=== PATIENT | male | born 1950 | race Caucasian/White ===

== ENCOUNTER → 2018-05-31 | Outpatient (CLI) | payer OTHER ==
[~2018-05-31] MED LIST: ACETAMINOPHEN650 M5 PO; ACIPHEX 20 MG T20 MG PO; ALDACTONE25 MG PO; AMLODIPINE BESYL5 MG PO; AMOXICILLIN 50500 M1 PO; ASTELIN30 ML; AUGMENTIN 875-1 EACH PO; BENICAR HCT 401 EAC1 PO; BENICAR40 MG PO; BIOTIN800 MCG PO; BYETTA PEN 11 PENIN1 SUBQ; CARDIZEM CD240 MG PO; CARVEDILOL12.5 MG PO; CENTRUM SILVER1 EAC2 PO; CLARITIN-D 12 H1 TA2 PO; CLARITIN5 MG; CLOBETASOL OINTMENT; CLONAZEPAM; CLONAZEPAM 1 MG1 M1 PO; COREG25 MG PO; COUMADIN 10MG T10 M1 PO; COUMADIN 2.5MG2.5 M1 PO; COUMADIN PO; COUMADIN6 MG PO; CYMBALTA30 MG PO; CYMBALTA60 MG PO; CYTOMEL 5MCG TA5 MCG PO; DIGOXIN250 MCG PO; ELA-MAX30 GM TOP; FAMOTIDINE PO; FARXIGA10 MG PO; FEMARA2.5 MG PO; FISH OIL 1,2001 EAC3 PO; FISHOIL PO; FORADIL12 MCG; FORADIL12 MCG INH; GABAPENTIN 100100 MG PO; HYDROCODON-ACE1 EAC7 PO; HYDROCODONE-CH473 M1 PO; INVOKANA100 MG PO; IRON325 PO; K-DUR10 MEQ PO; KETOCONAZOLE 2%; LANOXIN 0.250.25 M1 PO; LANTUS SOL100 UNIT/1 SUBQ; LANTUSSOLASTAR; LANTUSSOLASTAR SUBQ; LASIX 20 MG TAB20 MG PO; LEVAQUIN 500 M500 M4 PO; LEVOTHYROXIN0.025 MG PO; LIDOCAINE 3% CREAM; LIDODERM 5%1 PATC1 TRANSDERM; LIDODERM 5%1 PATCH TOP; LIDODERM 5%1 PATCH TRANSDERM; LISINOPRIL2.5 MG PO; LISINOPRIL5 MG PO; MAGNES PO; MAGNESIUM250 M1 PO; MEDROL4 MG PO; MELADOX3 MG PO; MELATONIN1 MG PO; METFORMIN ER PO; METFORMIN PO; MIDODRINE HCL 55 M1 PO; NASAL SPRAY30 ML NASAL; NASONEX17 GM; NEURONTIN600 MG PO; NORCO 5-325 TA1 EACH PO; NORVASC 5 MG TAB5 MG PO; NOVOLOG FLEX PEN SC; NOVOLOG100 UNIT/1 SQ; NOVOLOG100 UNIT/1 SUBQ; PACERONE 200 M200 M1 PO; PRAVACHOL40 MG PO; PREVACID PO; PREVACID15 MG PO; PULMICORT FLE180 MCG INH; PULMICORT0.25 MG/2; RELORA PO; SUPER B-COMPLE1 EAC2 PO; VITAMIN B-1100 M1 PO; VITAMIN B12-FO1 EAC1 PO; VITAMIN B6 PO; VITAMIN D-32000 UNIT PO; WELLBUTRIN SR150 MG PO; XARELTO15 MG PO; XOPENEX HF1 UDINHALE; XOPENEX0.31 MG/3 INH; ZESTORETIC; ZINC 15 MG LOZE15 MG PO; [UNRECOGNIZED DRUG - OTHER]; [UNRECOGNIZED DRUG - REMARK]
[2018-05-31 09:23] LABS: CALCIUM 8.5 mg/dL (8.5-10.1); CREATININE 0.9 mg/dL (0.6-1.3); POTASSIUM 4.4 mmol/L (3.5-5.1)
[2018-05-31 09:28] LABS: TOTAL BILIRUBIN 1.1 mg/dL (<0.1-1.0); TOTAL PROTEIN 6.8 g/dL (6.4-8.2)
[2018-05-31 09:31] LABS: ABSOLUTE BASOPHILS 0.1 thou/uL (0.0-0.2); ABSOLUTE EOSINOPHILS 0.3 thou/uL (0.0-0.7); ABSOLUTE LYMPHOCYTES 1.6 thou/uL (0.8-5.3); ABSOLUTE MONOCYTES 0.8 thou/uL (0.0-1.2); ABSOLUTE NEUTROPHILS 4.6 thou/uL (1.6-8.1); BASOPHILS 1.4 %; EOSINOPHILS 4.3 %; HEMATOCRIT 41.3 % (42.0-52.0); HEMOGLOBIN 13.4 gm/dL (14.0-18.0); LYMPHOCYTES 21.5 %; MCH 26.6 pg (26.0-34.0); MCHC 32.3 g/dL (28.0-37.0); MCV 82.4 fL (80.0-100.0); MONOCYTES 10.4 %; MPV 8.9 fl. (7.2-11.1); NUCLEATED RBCS 0 /100WBC; PLATELET COUNT* 201 thou/uL (150-400); POLYS 62.4 %; RBC 5.02 mil/uL (4.50-6.00); RDW-CV 14.1 % (10.5-14.5); WBC 7.4 thou/uL (4.0-11.0)
[2018-05-31 10:31] LABS: ESR (SEDRATE) 13 mm/hr (0-20)
[2018-06-01 03:07] LABS: GLYCOHEMOGLOBIN (HGB A1C) 10.2 % (4.8-5.6)
== END ==
LOC: M.WC 02:04
PROVIDERS: Family Medicine
DX: I87.333 Chronic venous hypertension (idiopathic) with ulcer and inflammation of bilateral lower extremity (principal); E11.622 Type 2 diabetes mellitus with other skin ulcer; L97.822 Non-pressure chronic ulcer of other part of left lower leg with fat layer exposed; L97.812 Non-pressure chronic ulcer of other part of right lower leg with fat layer exposed; I89.0 Lymphedema, not elsewhere classified; E11.40 Type 2 diabetes mellitus with diabetic neuropathy, unspecified; M06.9 Rheumatoid arthritis, unspecified; K21.9 Gastro-esophageal reflux disease without esophagitis; I50.22 Chronic systolic (congestive) heart failure; I48.2 Chronic atrial fibrillation; F33.1 Major depressive disorder, recurrent, moderate; E03.8 Other specified hypothyroidism; Z85.3 Personal history of malignant neoplasm of breast; Z68.37 Body mass index [BMI] 37.0-37.9, adult; Z79.4 Long term (current) use of insulin

== ENCOUNTER → 2018-06-04 | Outpatient (CLI) | payer OTHER | LOC: M.WC 01:05 | DX: I87.333 Chronic venous hypertension (idiopathic) with ulcer and inflammation of bilateral lower extremity (principal); E11.622 Type 2 diabetes mellitus with other skin ulcer; L97.821 Non-pressure chronic ulcer of other part of left lower leg limited to breakdown of skin; L97.811 Non-pressure chronic ulcer of other part of right lower leg limited to breakdown of skin; I89.0 Lymphedema, not elsewhere classified; I25.10 Atherosclerotic heart disease of native coronary artery without angina pectoris; I50.22 Chronic systolic (congestive) heart failure; I48.2 Chronic atrial fibrillation; K21.9 Gastro-esophageal reflux disease without esophagitis; F33.1 Major depressive disorder, recurrent, moderate; E03.8 Other specified hypothyroidism; E11.40 Type 2 diabetes mellitus with diabetic neuropathy, unspecified; M06.9 Rheumatoid arthritis, unspecified; Z85.3 Personal history of malignant neoplasm of breast; Z68.37 Body mass index [BMI] 37.0-37.9, adult ==

== ENCOUNTER → 2018-06-07 | Outpatient (CLI) | payer OTHER | LOC: M.WC 03:45 | DX: E11.622 Type 2 diabetes mellitus with other skin ulcer (principal); L97.821 Non-pressure chronic ulcer of other part of left lower leg limited to breakdown of skin; L97.811 Non-pressure chronic ulcer of other part of right lower leg limited to breakdown of skin; L97.321 Non-pressure chronic ulcer of left ankle limited to breakdown of skin; L97.311 Non-pressure chronic ulcer of right ankle limited to breakdown of skin; E11.40 Type 2 diabetes mellitus with diabetic neuropathy, unspecified; I89.0 Lymphedema, not elsewhere classified; I25.10 Atherosclerotic heart disease of native coronary artery without angina pectoris; I50.22 Chronic systolic (congestive) heart failure; I48.2 Chronic atrial fibrillation; K21.9 Gastro-esophageal reflux disease without esophagitis; E03.8 Other specified hypothyroidism; M06.9 Rheumatoid arthritis, unspecified; F33.1 Major depressive disorder, recurrent, moderate; Z85.3 Personal history of malignant neoplasm of breast; Z68.37 Body mass index [BMI] 37.0-37.9, adult; Z95.0 Presence of cardiac pacemaker ==

== ENCOUNTER → 2018-06-11 | Outpatient (CLI) | payer OTHER ==
--- NOTE | 2018-06-11 12:54 | 2DMMODE ---
[place] [address] 2 D/M-MODE ECHOCARDIOGRAM Name: ED SEAY Room: [facility]#: [id number] Admission: 06/11/18 Attend Phys: Rober Christine MD Discharge: Date of : 54 Date of Service: 06/11/18 1254 Report #: [id number] THIS REPORT FOR: //name// APPROVED REPORT Study performed: 06/11/2018 10:02:15 EXAM: Comprehensive 2D, Doppler, and color-flow Echocardiogram BSA: 2.33 HR: 70 bpm BP: 120/90 mmHg Other Information Study Quality: Fair Indications Congestive Heart Failure 2D Dimensions LVEF(%): 36.74 (>50%) IVSd: 12.71 (7-11mm) LVOT Diam: 21.89 (18-24mm) LVDd: 48.48 mm PWd: 11.48 (7-11mm) Ascending Ao: 30.46 (22-36mm) LVDs: 39.91 (25-40mm) Aortic Root: 34.49 mm Montalvo's LVEF: 36.74 % Volumes Left Atrial Volume (Systole) LA ESV Index: 48.80 mL/m2 Aortic Valve AoV Peak Arash.: 0.70 m/s AO Peak Gr.: 1.97 mmHg LVOT Max P.16 mmHg AO Mean Gr.: 1.27 mmHg LVOT Mean P.52 mmHg LVOT Max V: 0.54 m/s AO V2 VTI: 11.14 cm LVOT Mean V: 0.33 m/s WILY (VTI): 2.75 cm2 LVOT V1 VTI: 8.13 cm Mitral Valve E/A Ratio: 3.26 MV Decel. Time: 116.03 ms MV E Max Arash.: 0.65 m/s MV PHT: 33.65 [place] [address] 2 D/M-MODE ECHOCARDIOGRAM Name: DE SEAY Room: [facility]#: [id number] Admission: 06/11/18 Attend Phys: Rober Christine MD Discharge: Date of : 54 Date of Service: 06/11/18 1254 Report #: [id number] MVA (PHT): 6.54 cm2 TDI E/Lateral E': 9.29 E/Medial E': 7.22 Medial E' Arash.: 0.09 m/s Lateral E' Arash.: 0.07 m/s Pulmonary Valve PV Peak Arash.: 0.58 m/s PV Peak Gr.: 1.36 mmHg Tricuspid Valve RAP Estimate: 10.00 mmHg TR Peak Gr.: 38.67 mmHg RVSP: 48.67 mmHg PA Pressure: 48.67 mmHg Left Ventricle The left ventricle is normal size. There is diffuse hypokinesis of left ventricuar wall motion There is normal left ventricular wall thickness. Left ventricular systolic function is moderately severely decreased LVEF is 30-35%. Right Ventricle The right ventricle is normal size. The right ventricular systolic function is normal. Device lead is present in the right ventricle. Atria Left atrium is mildly dilated. The right atrium size is normal. Aortic Valve Mild aortic valve sclerosis. Trace aortic regurgitation. There is no aortic valvular stenosis. Mitral Valve Mild mitral annular calcification. Mild mitral regurgitation. No evidence of mitral valve stenosis. Tricuspid Valve The tricuspid valve is normal in structure. Mild tricuspid regurgitation. Pulmonic Valve The pulmonary valve is normal in structure. There is no pulmonic valvular regurgitation[place] [address] 2 D/M-MODE ECHOCARDIOGRAM Name: ED SEAY Room: [facility]#: [id number] Admission: 06/11/18 Attend Phys: Rober Christine MD Discharge: Date of : 54 Date of Service: 06/11/18 1254 Report #: [id number] The aortic root is normal in size. IVC is dilated and collapses >50% with inspiration. Pericardium There is no pericardial effusion. <Conclusion> The left ventricle is normal size. There is normal left ventricular wall thickness. Left ventricular systolic function is moderately severely decreased LVEF is 30-35%. The right ventricle is normal size. Left atrium is mildly dilated. Mild aortic valve sclerosis. Trace aortic regurgitation. There is no aortic valvular stenosis. Mild mitral annular calcification. Mild mitral regurgitation. The tricuspid valve is normal in structure. Mild tricuspid regurgitation. IVC is dilated and collapses >50% with inspiration. There is no pericardial effusion. There is diffuse hypokinesis of left ventricuar wall motion Device lead is present in the right ventricle. <ELECTRONICALLY SIGNED> By: Ed Freeman MD, FACC 06/11/18 1254 1254 1254 Ed Freeman MD, FACC /INF
== END ==
LOC: M.CRD 09:21
DX: I08.1 Rheumatic disorders of both mitral and tricuspid valves (principal); I48.0 Paroxysmal atrial fibrillation; E11.9 Type 2 diabetes mellitus without complications; Z88.8 Allergy status to other drugs, medicaments and biological substances

== ENCOUNTER → 2018-06-13 | Outpatient (CLI) | payer OTHER ==
[2018-06-13 15:03] LABS: CALCIUM 8.5 mg/dL (8.5-10.1); CREATININE 1.1 mg/dL (0.6-1.3); POTASSIUM 4.9 mmol/L (3.5-5.1)
== END ==
LOC: M.LAB 14:33
PROVIDERS: Family Medicine
DX: E11.65 Type 2 diabetes mellitus with hyperglycemia (principal); I25.10 Atherosclerotic heart disease of native coronary artery without angina pectoris

== ENCOUNTER → 2018-06-14 | Outpatient (CLI) | payer OTHER | LOC: M.WC 03:43 | DX: E11.622 Type 2 diabetes mellitus with other skin ulcer (principal); I87.333 Chronic venous hypertension (idiopathic) with ulcer and inflammation of bilateral lower extremity; L97.821 Non-pressure chronic ulcer of other part of left lower leg limited to breakdown of skin; L97.811 Non-pressure chronic ulcer of other part of right lower leg limited to breakdown of skin; E11.40 Type 2 diabetes mellitus with diabetic neuropathy, unspecified; I50.22 Chronic systolic (congestive) heart failure; I89.0 Lymphedema, not elsewhere classified; M06.9 Rheumatoid arthritis, unspecified; E03.8 Other specified hypothyroidism; I25.10 Atherosclerotic heart disease of native coronary artery without angina pectoris; I48.2 Chronic atrial fibrillation; F33.1 Major depressive disorder, recurrent, moderate; Z85.3 Personal history of malignant neoplasm of breast; Z95.0 Presence of cardiac pacemaker ==

== ENCOUNTER → 2018-06-21 | Outpatient (CLI) | payer OTHER | LOC: M.WC 02:09 | DX: E11.622 Type 2 diabetes mellitus with other skin ulcer (principal); I87.333 Chronic venous hypertension (idiopathic) with ulcer and inflammation of bilateral lower extremity; L97.821 Non-pressure chronic ulcer of other part of left lower leg limited to breakdown of skin; L97.811 Non-pressure chronic ulcer of other part of right lower leg limited to breakdown of skin; I89.0 Lymphedema, not elsewhere classified; E11.40 Type 2 diabetes mellitus with diabetic neuropathy, unspecified; I25.10 Atherosclerotic heart disease of native coronary artery without angina pectoris; I50.22 Chronic systolic (congestive) heart failure; I48.91 Unspecified atrial fibrillation; K21.9 Gastro-esophageal reflux disease without esophagitis; E03.8 Other specified hypothyroidism; F33.1 Major depressive disorder, recurrent, moderate; Z85.3 Personal history of malignant neoplasm of breast; Z95.0 Presence of cardiac pacemaker ==

== ENCOUNTER → 2018-06-28 | Outpatient (CLI) | payer OTHER | LOC: M.WC 03:21 | DX: E11.622 Type 2 diabetes mellitus with other skin ulcer (principal); I87.333 Chronic venous hypertension (idiopathic) with ulcer and inflammation of bilateral lower extremity; L97.821 Non-pressure chronic ulcer of other part of left lower leg limited to breakdown of skin; L97.811 Non-pressure chronic ulcer of other part of right lower leg limited to breakdown of skin; I89.0 Lymphedema, not elsewhere classified; E11.40 Type 2 diabetes mellitus with diabetic neuropathy, unspecified; M06.9 Rheumatoid arthritis, unspecified; F32.9 Major depressive disorder, single episode, unspecified; Z85.3 Personal history of malignant neoplasm of breast; Z95.0 Presence of cardiac pacemaker ==

== ENCOUNTER → 2018-07-05 | Outpatient (CLI) | payer OTHER | LOC: M.WC 04:49 | DX: E11.622 Type 2 diabetes mellitus with other skin ulcer (principal); I87.333 Chronic venous hypertension (idiopathic) with ulcer and inflammation of bilateral lower extremity; L97.811 Non-pressure chronic ulcer of other part of right lower leg limited to breakdown of skin; L97.821 Non-pressure chronic ulcer of other part of left lower leg limited to breakdown of skin; E11.40 Type 2 diabetes mellitus with diabetic neuropathy, unspecified; I25.10 Atherosclerotic heart disease of native coronary artery without angina pectoris; I11.0 Hypertensive heart disease with heart failure; I50.22 Chronic systolic (congestive) heart failure; I89.0 Lymphedema, not elsewhere classified; I48.2 Chronic atrial fibrillation; K21.9 Gastro-esophageal reflux disease without esophagitis; E03.8 Other specified hypothyroidism; M06.9 Rheumatoid arthritis, unspecified; F33.1 Major depressive disorder, recurrent, moderate; Z85.3 Personal history of malignant neoplasm of breast; Z68.37 Body mass index [BMI] 37.0-37.9, adult ==

== ENCOUNTER 2018-08-03 14:50 | Inpatient (IN) | payer OTHER ==
[~2018-08-03] VITALS: Ht 152.4 cm; Wt 123.4 kg
[~2018-08-03 14:50] MED LIST changes: -LISINOPRIL2.5 MG PO
[2018-08-03 15:05] VITALS: BP 141/103
[2018-08-03 15:38] LABS: URINE BLOOD 1+ (Negative); URINE CLARITY CLEAR; URINE COLOR YELLOW; URINE GLUCOSE-RANDOM 2+ (Negative); URINE KETONES TRACE (Negative); URINE LEUKOCYTES-REFLEX NEGATIVE (Negative); URINE NITRITE-REFLEX NEGATIVE (Negative); URINE PROTEIN 3+ (Negative); URINE SPECIFIC GRAVITY >= 1.030 (1.005-1.030)
[2018-08-03 15:43] LABS: ICTOTEST (BILI CONFIRMATORY) Negative (Negative); URINE BILIRUBIN 1+ (Negative)
[2018-08-03 15:54] LABS: ABSOLUTE BASOPHILS 0.1 thou/uL (0.0-0.2); ABSOLUTE EOSINOPHILS 0.2 thou/uL (0.0-0.7); ABSOLUTE LYMPHOCYTES 2.2 thou/uL (0.8-5.3); ABSOLUTE MONOCYTES 0.9 thou/uL (0.0-1.2); ABSOLUTE NEUTROPHILS 5.3 thou/uL (1.6-8.1); BASOPHILS 1.2 %; EOSINOPHILS 1.9 %; HEMATOCRIT 46.7 % (42.0-52.0); LYMPHOCYTES 25.9 %; MCH 25.1 pg (26.0-34.0); MCHC 32.2 g/dL (28.0-37.0); MCV 77.8 fL (80.0-100.0); MONOCYTES 9.9 %; NUCLEATED RBCS 0 /100WBC; PLATELET COUNT* 215 thou/uL (150-400); POLYS 61.1 %; RBC 6.01 mil/uL (4.50-6.00); RDW-CV 16.4 % (10.5-14.5); WBC 8.6 thou/uL (4.0-11.0)
[2018-08-03 16:01] LABS: INR 1.3; PROTIME 13.8 Seconds (9.20-11.50)
[2018-08-03 16:03] LABS: SQUAMOUS 4-10 Moderate /LPF (0-3); URINE RBC 0-2 Rare /HPF (0-2); URINE WBC-REFLEX 0-5 Rare /HPF (0-5)
[2018-08-03 16:04] LABS: BACTERIA-REFLEX 1-9 Few /HPF (None Seen); CRYSTALS None Seen /LPF (None Seen); HYALINE CASTS 4-10 Moderate /LPF (None Seen); MUCUS 4-6 Moderate strn/LPF (None Seen)
[2018-08-03 16:04] LABS: ANION GAP 6 mmol/L (7-16); BUN 20 mg/dL (7-18); CALCIUM 8.3 mg/dL (8.5-10.1); CHLORIDE 97 mmol/L (98-107); CO2 28 mmol/L (21-32); CREATININE 1.1 mg/dL (0.6-1.3); GLUCOSE 407 mg/dL (70-99); POTASSIUM 4.4 mmol/L (3.5-5.1); SODIUM 131 mmol/L (136-145)
[2018-08-03 16:15] LABS: ALBUMIN 3.1 g/dL (3.4-5.0); ALKALINE PHOSPHATASE 84 U/L (46-116); LIPASE 138 U/L (73-393); NT-PRO BRAIN NAT PEPTIDE 5712 pg/mL (<300); SGOT 11 U/L (15-37); SGPT 10 U/L (30-65); TOTAL BILIRUBIN 1.2 mg/dL (<0.1-1.0); TOTAL PROTEIN 7.3 g/dL (6.4-8.2); TROPONIN-I LEVEL <0.06 ng/mL (<0.06)
[2018-08-03 18:52] VITALS: BP 129/92
[2018-08-03 18:55] VITALS: BP 136/101
[2018-08-03 20:00] VITALS: BP 130/92
[2018-08-04] VITALS (8 sets, daily range): BP systolic 72–106; BP diastolic 54–75
--- NOTE | 2018-08-04 05:22 | NUR ---
PT WAS ADMITTED ON THE AT 1900 REPORT WAS RECEIVED FROM DAY SHIFT TELE NURSE. I WENTIN THE RROM AND PT WAS LIYING IN BED WATCHIN TV. VITAL SIGNS CHECKED. THEY ARE WITHIN NORMAL LIMIT. O2 WAS INITIATED ORDERED. PT SATURATION 94% ON RA. AND REMIANS ABOVE 95% WITH O2 ON. HE HAS NOT TAKEN HIS NIGHT MEDS YET SO DR OPTICAL EFFECTS LAYOUT PERSON WAS PAGED AND MED LIST WAS UPDATED. MEDS WERE GIVEN ORDERED. HE COMPLAINED OF PAIN N THE BACK AND ORCO WAS GIVEN TO CONTROL THE PAIN. PT HAS A BLOOD SUGAR OF 432. DR ONEAL PAGED PT SAYS HE GETS 50 UNITS OF LONG ACTING AT HOME. 50 UNITS OF LANTUS WS GIVEN ORDERED ADMISSION ASSESSMENT AND HISTORY DONE. REFER TO CHARTING. PT HAS A PACER THAT IS V PACED AND IS ON AFIB ON THE MONITOR. NO COA NOTICES, NO CHEST PAIN STATED. PICTURES PF LILATERAL LOWER ECTREMITIES DIABETIC ULCR LIKE SCARS/PICTURES TAKEN ANS PLACED ON BERTHA. THR RIGR IS THERE AGIAIN/
--- NOTE | 2018-08-04 09:00 | NUR ---
VSS, ASSUMED CARE IN THE AM, ASSESSMENT PERFORMED AND CHARTED, FALL PRECAUTIONS IN PLACE AND CALL LIGHT IN REACH, PT IS A&O4 UP WITH STAND BY, ON 2L NC AT HS, HIS IS AFIB/ PACED ON THE MONITOR, HR RATE CONTROLED, PT GOAL IS TO SIT UP IN CHAIR, HE DENIES ANY PAIN, WILL FOLLOW WITH PLAN OF CARE.
--- NOTE | 2018-08-04 17:55 | NUR ---
VSS, PT IS TRACING AFIB ON THE MONITOR, PT IS UP AD FELISHA ON THE MONITOR, PT HAS MEET GOAL, WALED IN ROOM. HOURLY ROUNDS COMPLETED,
--- NOTE | 2018-08-04 22:12 | NUR ---
ASSUMED PT CARE REPORT RECEIVED FORM NURSE. PT IS ALERT AWAKE ORIENTED X4. HE IS V PACED AND A FIB ON THE LOGISTICS/SHIPPER. HIS BP IS 72/54. ASYMPTOMATIC. HR 72. PT HAD RECEIVED CARVEDILOL, DIGOXIN AND LASIX DURING THE AFTERNOON. ADN HE STATES THAT LASIX HAS BROUGHT HIS BP DOWN IN THE PAST REASON WHY HE HAD STOOPED TAKING IT. HE ALSO STATES THAT HE FORGOT TO MENTION THAT TO THE NURSE/DOCTOR DURING THE DAY. DR CALVERT GAVE A STANDING ORDER FOR NS 500 CC BAG IF BP STAYS LOW AFTER ONE HOUR. BP WAS RECHECKED AND HAS INCREASED TO 93/63 HR 71. WILL OCNTINUE TO MONITOR. PT ACCUCHECK IS 85 , NO INSULIN GIVEN. SNACK ( PUNDING) OFFERED. PT COMPLAINS OF PAIN IN THE BACK HYDROCODONE ADMINISTERED ORDERED. XOULD NOT OBTAIN TEMPERATURE IS PT MOUTH OR AXILLARY. ATTEMPT IN RECTUM. TEMP IS 96. 5. SKIN IS COOL AND PALE. BUT PT FEELS ALRIGHT. HE IS RESTING IN BED. WILL CONTINUE TO MONITOR.
[2018-08-05] VITALS (7 sets, daily range): BP systolic 89–108; BP diastolic 55–80
--- NOTE | 2018-08-05 02:21 | NUR ---
AT MIDNIGHT . VITAL SIGNS CHECKED BY TECH. PT TEMP NOT ACCESSIBLE ORALLY. PT IS ASYMPTOMATIC BUT SKIN IS COLD AND PALE. SEPTIC PROTOCOL IN PLACE. 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 SEE ORDERS. IV FLUID STARTED AT 80CC PER HOUR. LEVAQUIN, VANCO STARTED. NEW IV INSERTED IN LEFT FOREAMRN. BEAR HUGGER BLANKET PROVIDED TO KEEP PT WARM. LACTIC ACID IS 2.6. BLOOD CULTURE PENDING. WILL CONTINUE TO MONITOR. PT COMPLAINS OF ABDOMINAL PAIN. HYDROCODONE GIVEN WELL COLACE FOR CONSTIPATION
--- NOTE | 2018-08-05 03:43 | NUR ---
BEAR HUGGER IN PLACE. PT STATES HE FEEL SWARM. IV VANCO AND NS INFUSING. CHEST X RAY SHOWS ATELECTASIS ANS SMALL PLEURAL EFFUSION BILATERALLY. NEW TEMPERATURE IS 97.5 ORALLY. WILL CONTINUE TO MONITOR.
[2018-08-05 05:53] LABS: CALCIUM 8.1 mg/dL (8.5-10.1); CREATININE 1.1 mg/dL (0.6-1.3); POTASSIUM 4.2 mmol/L (3.5-5.1)
--- NOTE | 2018-08-05 05:53 | NUR ---
PT BP RECHECKED NOW BP 95/64 . TEMPERATURE RECHECHED WELL. 97.5 ORALLLY. PT STILL HAS THE BEAR HUGGER ON AT LOW SETTING. AND IV FLUID INIFUSING AT 80 CC PER HOUR. VANCO AND LEVAQUIN ARE OVER. PT IS STABLE AND ASYMPTOMATIC.
--- NOTE | 2018-08-05 12:59 | CON ---
[address] [address] CONSULTATION Name: ED SEAY Room: [address] IN .R.#: [id number] Admission: 08/03/18 Attend Phys: Jorge Iniguez Discharge: Date of : 54 Report #: [id number] THIS REPORT FOR: //name// CC: Trung Christine MD [facility] Jeferson Robles INDICATION: Acute on chronic systolic heart failure. HISTORY OF PRESENT ILLNESS: The patient is a very pleasant 68-year-old gentleman with a long history of nonischemic cardiomyopathy and persistent/chronic atrial fibrillation. He was admitted to the hospital after having progressive dyspnea for 2 weeks and ultimately orthopnea and peripheral edema. He has had problems with peripheral edema in the past that have been resolved with intermittent Lasix. He has not been on any diuretics for the last 6 months. Since being admitted to the hospital, he was given a single dose of IV Lasix with prompt diuresis. He states that his symptoms have resolved. He denies any chest pain. He is no longer having orthopnea, which he had yesterday. He denies palpitations. He is chronically anticoagulated with Xarelto. He has a history of pulmonary embolus on 5 separate occasions. He had been on tamoxifen for breast cancer treatments contributing to this. He is presently stable on 20 mg of Xarelto daily without bleeding problems. PAST MEDICAL HISTORY: 1. Persistent/chronic atrial fibrillation. 2. Chronic systolic heart failure. 3. Nonischemic cardiomyopathy. 4. Recurrent pulmonary emboli. 5. Chronic anticoagulation. 6. Breast cancer. PAST SURGICAL HISTORY: 1. ICD placement for primary prevention. 2. Appendectomy. 3. Breast cancer surgery. 4. Uvulopalatoplasty for sleep apnea. FAMILY HISTORY: The patient's mother has a pacemaker. There was no history of premature atherosclerotic coronary artery disease or sudden . SOCIAL HISTORY: The patient is . 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 He does not smoke. [place] [address] CONSULTATION Name: ED SEAY Room: [address]#: [id number] Admission: 08/03/18 Attend Phys: Jorge Iniguez Discharge: Date of : 54 Report #: [id number] ALLERGIES: TAPE, OMEPRAZOLE, METHYLPHENIDATE, TAMOXIFEN, ANASTROZOLE, PIOGLITAZONE, SULFAMETHOXAZOLE, and TRIMETHOPRIM. HOME MEDICATIONS: Carvedilol 25 mg p.o. b.i.d., clonazepam 1 mg p.o. at bedtime, digoxin 0.25 mg p.o. daily, Cymbalta 60 mg p.o. at bedtime, iron sulfate 325 mg p.o. daily, Foradil 12 mcg capsule 1 capsule every 12 hours, Neurontin 600 mg t.i.d., insulin 35 units with meals, levothyroxine 25 mcg daily, magnesium supplement 500 mg daily, pravastatin 80 mg at bedtime, Xarelto 20 mg daily. REVIEW OF SYSTEMS: A 14-point review of systems is positive for asthma, dyspnea, orthopnea, paroxysmal nocturnal dyspnea, diabetes, hypothyroidism, breast cancer 13 years ago, pulmonary emboli multiple times, seasonal allergies, medical allergies as outlined above, some mild depression and anxiety that is well treated. He has glasses without acute visual change. He has decreased hearing. Otherwise, 14-point review of systems was unremarkable. PHYSICAL EXAMINATION: VITAL SIGNS: Blood pressure 100/73, pulse 69 and regular. GENERAL: This is a moderately obese, pleasant white male, in no distress. Mood and affect appropriate. HEENT: Extraocular muscles intact. Mucous membranes are moist. NECK: Shows no jugular venous distention. There are no carotid bruits. CHEST: Reveals clear lung hager and I do not appreciate wheezes or rales. CARDIAC: Reveals irregularly irregular rhythm without gallop or murmur. ABDOMEN: Reveals normal bowel sounds. EXTREMITIES: Shows 1+ to trace edema with some excoriations over the shins. SKIN: Dry. LABORATORY DATA: Reviewed. Sodium 131, potassium 4.4, chloride 97, bicarb 28, BUN 20, creatinine 1.1, serum glucose 407. Troponin less than 0.06. NT-proBNP 5712. White blood cell count 8.6, hemoglobin 15.0, platelet count 215,000. Chest x-ray shows cardiomegaly with small pleural effusions. IMPRESSION AND RECOMMENDATIONS: 1. Acute on chronic systolic heart failure. The patient has responded nicely to a bolus of IV Lasix. We will repeat IV Lasix today and possibly start p.o. medications tomorrow. 2. Cardiomyopathy that appears to be nonischemic in origin. Continue carvedilol at current dose. We will add low-dose MIRELLA inhibitor as tolerated. 3. Chronic atrial fibrillation. The patient is chronically anticoagulated. Rate is adequately controlled. 4. Multiple pulmonary emboli in the past, we would continue Xarelto 20 mg daily indefinitely. 5. Diabetes, per primary physician. [address] [address] CONSULTATION Name: ED SEAY Room: [address] IN [facility].#: [id number] Admission: 08/03/18 Attend Phys: Jorge Iniguez Discharge: Date of : 54 Report #: [id number] 6. History of obstructive sleep apnea, status post surgery and CPAP usage. 7. Hyperlipidemia. Continue statin agent at current dose. <ELECTRONICALLY SIGNED> By: Vipin Sullivan MD, FACC 08/05/18 1259 1116 [id number] Sullivan MD, FACC /nt
--- NOTE | 2018-08-05 13:00 | NUR ---
VSS, ASSUMED CARE IN THE AM, ASSESSMENT PERFORMED AND CHARTED, FALL PRECAUTIONS IN PLACE AND CALL LIGHT IN REACH, PT DENIES ANY PAIN AND HE IS A&O4, ON RA AND UP WITH WITH STAND BY, PT GOAL IS TO IMPROVE BREATHING, WILL FOLLOW WITH PLAN OF CARE.
--- NOTE | 2018-08-05 16:55 | EKG ---
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1950 Requested By: Lex Huddleston Order Number: [id number] MD: Vipin Sullivan Measurements Intervals [place] Rate: 93 P: OK: QRS: 36 QRSD: 89 T: 173 QT: 386 QTc: 481 Interpretive Statements Atrial fibrillation Nonspecific T abnormalities, diffuse leads Borderline prolonged QT interval Compared to ECG 08/11/2017 16:20:56 T-wave abnormality now present Electronically Signed On 08-05-2018 16:55:16 CDT by Vipin Sullivan [email or web address] <ELECTRONICALLY SIGNED> By: Vipin Sullivan MD, [facility] 08/05/18 1655 1535 1535 Vipin Sullivan MD, [facility] /EPI
--- NOTE | 2018-08-05 18:34 | NUR ---
VSS, PT IS PROGRESSING TOWARDS GOAL, PT DENIES ANY C/O PAIN AND IS TRACING AFIB ON THE MONITOR AND IS A-PACED ON THE MONITOR, PT HAS SWEELING IN HIS FEET, RIGHT FOOT IS 3+ AND LEFT IS 2+, PT IS UP STAND BY, GOAL MET PT WALKED IN ROOM AND WAS UP IN CHAIR, HEY HAS BEEN KEEPING HIS FEET AND LEGS UP ABOVE HEART, HOURLY ROUNDS COMPLETED AND WILL FOLLOW WITH PLAN OF CARE,
[2018-08-06] VITALS: BP 124/85
--- NOTE | 2018-08-06 03:44 | NUR ---
ASSUMED PT CARE AT 1915 REPORT RECEIVED FROM NURSE. 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 HE IS PLEASANTLY WATCHING TV. NO COMPLAINT. IV VANCO GIVEN. MEDS GIVEN ORDERED. SKINIS WARM. TEMPERATURE IS 98.1. SATURATION IS ABOVE 95% ON RA. O2 2L NC GIVEN AT BEDTIME. LOWER EXTREMITIES ARE EDEMATOUS. PT LEGS ELEVATED ON 2 PILLOWS. WILL CONTINUE TO MONITOR.
[2018-08-06 04:00] VITALS: BP 99/61
[2018-08-06 08:00] VITALS: BP 106/74
--- NOTE | 2018-08-06 10:00 | NUR ---
Pt is A&O. Resides at home alone. Independent with ADLs, continues to cook, clean and drive. Pt has a cane, walker and scooter at home, Pt states that he uses the cane quite a bit. Pt also has a home bipap and o2 through [employer]. Hx of , but does not recall the name of the agency. Hx of skilled at [facility]. Pt's goal is to return home at nd, no needs anticipated. Following.
--- NOTE | 2018-08-06 12:10 | NUR ---
Nutrition: Pt seen for high BMI. Wt: 272#. Pt stated good appetite, is discharging tomorrow. He did not have any questions/concerns about wt or diet. He had not received a menu and has been not liking some of the [employer] foods. RD provided [employer] menu to pt with explanation of Alternative ordering. Pt was satisfied. He appears to understand his low Na diet well; he also does low Na at home. Consider low risk.
[2018-08-06 13:12] VITALS: BP 110/73
[2018-08-06 16:00] VITALS: BP 101/62
--- NOTE | 2018-08-06 17:07 | NUR ---
WOUND NURSE: PATIENT SEEN FOR WOUND ASSESSMENT ON BLE. PATIENT PRESENTED WITH MULTIPLE SCABS ON BLE. ALL BUT 2 HAD INTACT SCAR TISSUE UNDERNEATH WHEN CLEANSING THE LEGS WITH SOAP AND WATER. THERE IS A STABLE ESCHAR ON THE RIGHT GREAT TOE WHICH MEASURES 0.5 CM IN DIAMETER. THERE IS A STABLE ESCHR ON THE LEFT MEDIAL TIBIA MEASURING 1.0 CM IN DIAMETER. PLAN IS TO LEAVE OPEN TO AIR UNTIL THE SCABS FALL OFF. PATIENT HAS 2+ EDEMA IN BLE, MORE SO IN FEET. APPLIED 2 LAYER SIZE E TUBIGRIPS TOES TO KNEE TO BE WORN DAILY WHEN OUT OF BED. PATIENT INSTRUCTED ON MEASURES TO PROMOTE WOUND HEALING AND PREVENT FURTHER COMPLICATIONS WITH FAIR UNDERSTANDING ACHEIVED.
--- NOTE | 2018-08-06 18:32 | NUR ---
RECEIVED REPORT FROM SHAN MUHAMMAD. ASSUMED CARE OF PT AROUND 0730. PT A&O X4. VSS. O2 SAT 93% ON RA. AM ASSESSMENT AND VITALS COMPLETED CHARTED. 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 BP'S SOFT THIS SHIFT, 106/74. PT ASYMPTOMATIC BUT STATES THAT HE DOES HAVE SOME OCCASIONAL DIZZINESS. PT EDUCATED TO CALL OUT FOR ASSISTANCE WITH GETTING UP IF HE FEELS DIZZY. PT COMMUNICATES UNDERSTANDING. IV TO LEFT FA INTACT AND SALINE LOCKED. PT REPORTED RIGHT LOWER BACK SORENESS, HE THINKS IS RELATED TO "BEING FILLED WITH FLUID THERE". DENIES NEED FOR PAIN MEDICATION THIS SHIFT. PT SEEN BY WOUND RN. PIC TAKEN OF PT'S RIGHT GREAT TOE - PT STATES WOUND WAS "PRESENT WHEN I CAME IN". PT EATING AND DRINKING WITHOUT ISSUE. VOIDING WITHOUT ISSUE. BM THIS AM. PT CURRENTLY SITTING UP IN BEDSIDE CHAIR. LOW FALL RISK PRECAUTIONS IN PLACE. CALL LIGHT IS WITHIN REACH, HOURLY ROUNDING PERFORMED. WCTM FOR DURATION OF SHIFT.
[2018-08-06 20:00] VITALS: BP 105/72
[2018-08-07] VITALS: BP 119/78
[2018-08-07 04:00] VITALS: BP 137/74
--- NOTE | 2018-08-07 04:06 | NUR ---
PT ALERT ORIENTED. DENIES PAIN THIS SHIFT. O2 2 LITERS NC. TELEMETRY SHOWS VPACED. UP TO CHAIR DURING DAY WITH STAND BY ASSIST.
[2018-08-07 07:38] LABS: CALCIUM 7.7 mg/dL (8.5-10.1); CREATININE 1.2 mg/dL (0.6-1.3); POTASSIUM 3.4 mmol/L (3.5-5.1)
[2018-08-07 08:04] VITALS: BP 111/73
[2018-08-07 08:09] LABS: ABSOLUTE BASOPHILS 0.1 thou/uL (0.0-0.2); ABSOLUTE EOSINOPHILS 0.2 thou/uL (0.0-0.7); ABSOLUTE LYMPHOCYTES 1.8 thou/uL (0.8-5.3); ABSOLUTE MONOCYTES 1.6 thou/uL (0.0-1.2); ABSOLUTE NEUTROPHILS 7.4 thou/uL (1.6-8.1); BASOPHILS 0.9 %; EOSINOPHILS 1.7 %; HEMATOCRIT 42.4 % (42.0-52.0); HEMOGLOBIN 13.4 gm/dL (14.0-18.0); LYMPHOCYTES 16.1 %; MCH 24.5 pg (26.0-34.0); MCHC 31.5 g/dL (28.0-37.0); MCV 77.9 fL (80.0-100.0); MONOCYTES 14.1 %; MPV 9.6 fl. (7.2-11.1); NUCLEATED RBCS 0 /100WBC; PLATELET COUNT* 159 thou/uL (150-400); POLYS 67.2 %; RBC 5.44 mil/uL (4.50-6.00); RDW-CV 16.8 % (10.5-14.5); WBC 11.1 thou/uL (4.0-11.0)
[2018-08-07 12:00] VITALS: BP 99/73
[2018-08-07 16:00] VITALS: BP 104/76
--- NOTE | 2018-08-07 19:04 | NUR ---
PT WITHOUT C/O TODAY. PT UP WITH SBA TO BATHROOM. TELE V PACED. PT ABLE TO MAKE NEEDS KNOWN, CALL LIGHT IN REACH
[2018-08-07 20:00] VITALS: BP 128/86
[2018-08-08] VITALS: BP 94/58
[2018-08-08 04:00] VITALS: BP 93/62
[2018-08-08 08:15] VITALS: BP 109/77
[2018-08-08 10:35] LABS: ABSOLUTE BASOPHILS 0.1 thou/uL (0.0-0.2); ABSOLUTE EOSINOPHILS 0.3 thou/uL (0.0-0.7); ABSOLUTE LYMPHOCYTES 1.5 thou/uL (0.8-5.3); ABSOLUTE MONOCYTES 1.1 thou/uL (0.0-1.2); ABSOLUTE NEUTROPHILS 5.5 thou/uL (1.6-8.1); HEMATOCRIT 41.9 % (42.0-52.0); HEMOGLOBIN 13.3 gm/dL (14.0-18.0); LYMPHOCYTES 18.1 %; MCH 24.7 pg (26.0-34.0); MCHC 31.8 g/dL (28.0-37.0); MCV 77.9 fL (80.0-100.0); MONOCYTES 12.7 %; NUCLEATED RBCS 0 /100WBC; PLATELET COUNT* 195 thou/uL (150-400); POLYS 64.2 %; RBC 5.38 mil/uL (4.50-6.00); RDW-CV 16.4 % (10.5-14.5); WBC 8.5 thou/uL (4.0-11.0)
[2018-08-08 11:58] VITALS: BP 114/76
[2018-08-08] MEDS ORDERED: LISINOPRIL2.5 MG PO (12:29)
[2018-08-08] MEDS ORDERED: NORCO 5-325 TA1 EACH PO (13:17)
== END 2018-08-08 15:13 | disposition home or self-care (01) | DRG 291 ==
LOC: M.ERS 14:50 → M.2W 16:24 → M.TBA-ER 16:24 → M.2W 18:56
PROVIDERS: Emergency Medicine; Internal Medicine Cardiovascular Disease; ADMIT Internal Medicine
PROC: 5A09357 Assistance with Respiratory Ventilation, Less than 24 Consecutive Hours, Continuous Positive Airway Pressure (ICD-10-PCS; principal; 2018-08-06)
DX: I50.23 Acute on chronic systolic (congestive) heart failure (principal); A41.9 Sepsis, unspecified organism; J69.0 Pneumonitis due to inhalation of food and vomit; I42.9 Cardiomyopathy, unspecified; E11.9 Type 2 diabetes mellitus without complications; G47.33 Obstructive sleep apnea (adult) (pediatric); E78.5 Hyperlipidemia, unspecified; E03.9 Hypothyroidism, unspecified; I48.2 Chronic atrial fibrillation; Z85.3 Personal history of malignant neoplasm of breast; Z86.711 Personal history of pulmonary embolism; Z88.2 Allergy status to sulfonamides; Z88.8 Allergy status to other drugs, medicaments and biological substances; Z79.01 Long term (current) use of anticoagulants; Z95.828 Presence of other vascular implants and grafts; Z90.49 Acquired absence of other specified parts of digestive tract; Z82.49 Family history of ischemic heart disease and other diseases of the circulatory system; Z79.899 Other long term (current) drug therapy

== ENCOUNTER → 2019-07-31 | Outpatient (CLI) | payer OTHER ==
[~2019-07-31] MED LIST changes: +LISINOPRIL2.5 MG PO
--- NOTE | 2019-07-31 16:15 | 2DMMODE ---
[place] [address] 2 D/M-MODE ECHOCARDIOGRAM Name: ED SEAY Room: [facility]#: [id number] Admission: 07/31/19 Attend Phys: Lain Escobar, Discharge: Date of : 54 Date of Service: 07/31/19 1615 Report #: [id number] THIS REPORT FOR: //name// APPROVED REPORT Study performed: 07/31/2019 13:24:35 EXAM: Comprehensive 2D, Doppler, and color-flow Echocardiogram Patient Location: Out-Patient BSA: 2.12 HR: 78 bpm BP: 120/80 mmHg Other Information Study Quality: Good Indications Cardiomyopathy 2D Dimensions IVSd: 13.55 (7-11mm) LVOT Diam: 20.47 (18-24mm) LVDd: 53.54 mm PWd: 11.95 (7-11mm) Ascending Ao: 31.54 (22-36mm) LVDs: 38.94 (25-40mm) Aortic Root: 34.87 mm Volumes Left Atrial Volume (Systole) LA ESV Index: 28.40 mL/m2 Aortic Valve AoV Peak Arash.: 1.05 m/s AO Peak Gr.: 4.42 mmHg LVOT Max P.31 mmHg AO Mean Gr.: 2.43 mmHg LVOT Mean P.07 mmHg LVOT Max V: 0.76 m/s AO V2 VTI: 17.55 cm LVOT Mean V: 0.48 m/s WILY (VTI): 2.22 cm2 LVOT V1 VTI: 11.86 cm Mitral Valve MV Decel. Time: 198.91 ms MV E Max Arash.: 0.45 m/s MV PHT: 57.68 ms MVA (PHT): 3.81 [place] [address] 2 D/M-MODE ECHOCARDIOGRAM Name: ED SEAY Room: [facility]#: [id number] Admission: 07/31/19 Attend Phys: Lani Escobar, Discharge: Date of : 54 Date of Service: 07/31/19 1615 Report #: [id number] TDI E/Lateral E': 5.00 E/Medial E': 6.43 Medial E' Arash.: 0.07 m/s Lateral E' Arash.: 0.09 m/s Pulmonary Valve PV Peak Arash.: 0.75 m/s PV Peak Gr.: 2.22 mmHg Tricuspid Valve RAP Estimate: 5.00 mmHg TR Peak Gr.: 23.11 mmHg RVSP: 28.11 mmHg PA Pressure: 28.11 mmHg Left Ventricle The left ventricle is normal size. There is normal LV segmental wall motion. Mild concentric left ventricular hypertrophy. Left ventricular systolic function is mild to moderately decreased. LVEF is 40-45%. This study is not technically sufficient to allow evaluation of the LV diastolic function due to atrial fibrillation. Right Ventricle The right ventricle is normal size. The right ventricular systolic function is normal. Pacemaker lead is present in the right ventricle. Atria Left atrium is mildly dilated. Pacemaker lead is present in the right atrium. Aortic Valve Aortic valve is mildly calcified. Trace aortic regurgitation. There is no aortic valvular stenosis. Mitral Valve The mitral valve is normal in structure. Mild mitral regurgitation. No evidence of mitral valve stenosis. Tricuspid Valve The tricuspid valve is normal in structure. Mild tricuspid regurgitation. Pulmonic Valve The pulmonary valve is normal in structure. There is no pulmonic valvular regurgitation[place] [address] 2 D/M-MODE ECHOCARDIOGRAM Name: GEENAED HOLT Margot Room: [facility]#: [id number] Admission: 07/31/19 Attend Phys: Lani Escobar, Discharge: Date of : 54 Date of Service: 07/31/19 1615 Report #: [id number] The aortic root is normal in size. IVC is normal in size and collapses >50% with inspiration. Pericardium There is no pericardial effusion. <Conclusion> The left ventricle is normal size. Mild concentric left ventricular hypertrophy. Left ventricular systolic function is mild to moderately decreased. LVEF is 40-45%. This study is not technically sufficient to allow evaluation of the LV diastolic function due to atrial fibrillation. The right ventricle is normal size. Left atrium is mildly dilated. Pacemaker lead is present in the right atrium. Aortic valve is mildly calcified. Trace aortic regurgitation. There is no aortic valvular stenosis. The mitral valve is normal in structure. Mild mitral regurgitation. The tricuspid valve is normal in structure. Mild tricuspid regurgitation. IVC is normal in size and collapses >50% with inspiration. There is no pericardial effusion. Pacemaker lead is present in the right ventricle. <ELECTRONICALLY SIGNED> By: Ed rFeeman MD, FACC 07/31/19 1615 1615 1615 Ed Freeman MD, FACC /INF
== END ==
LOC: M.CRD 13:00
DX: I08.3 Combined rheumatic disorders of mitral, aortic and tricuspid valves (principal); I42.0 Dilated cardiomyopathy

== ENCOUNTER → 2019-10-01 | Outpatient (CLI) | payer OTHER ==
--- NOTE | 2019-10-01 15:40 | CARDNUC ---
[place] [address] CARDIAC NUCLEAR IMAGING REPORT Name: ED SEAY Room: [facility]#: [id number] Admission: 10/01/19 Attend Phys: Lani Escobar, Discharge: Date of : 54 Date of Service: 10/01/19 1540 Report #: [id number] THIS REPORT FOR: //name// APPROVED REPORT Study performed: 10/01/2019 10:06:08 Exam: Nuclear Stress Test Indication: Abnormal EKG, Dyspnea Patient Location: Out-Patient Stress Tech: Jasmin Elliott Stress Nurse: Kathe Thompson RN Ht: 5 ft 10 in Wt: 205 lbs BSA: 2.11 m2 BMI: 29.41 Medical History Medical History: Arrhythmia, Atrial Fibrillation, Cardiomyopathy, CHF, COPD, Diabetes, HTN, Hyperlipidemia, Obesity , SOB, Weakness, hypotension, HX PE's, Dizziness, ICD, Hearing and vision impaired. Medications: Digoxin, Pravastatin, Rivaroxaban, Carvedilol, Midodrine, Insulin, Lisinopril. Allergies: Anastrozole, methylphenidate, Omeprazole, Pioglitazone, Tamoxifen, Tape. Cardiac Risk Factors: Age, Diabetes (insulin), FHX of CAD, HTN, Hyperlipidemia, SOB, PE's, COPD, CHF, Cardiomyopathy, CHRONIC AFIB. Previous Cardiac Procedures: ICD Pretest Chest Pain Characteristics: No chest pain Exercise History: Sedentary Physical Disabilities: Hearing and vision impaired, unstable, weak gait, ICD, AFib. Meds Held (24 hrs): Carvedilol. Stress Test Details Stress Test: Pharmacologic stress testing performed using 0.4 mg of regadenoson per 5 mL given IV over 10 seconds. Reason for pharmacologic stress test: Hearing and vision impaired, unsteady, weak gait, ICD, AFib.. HR Resting HR: 98 bpm Max Heart Rate (APMHR): 153 bpm Max HR Achieved: 129 bpm Target HR (85% APMHR): 130 bpm % of APMHR: 84 Recovery HR: 103 [place] [address] CARDIAC NUCLEAR IMAGING REPORT Name: ED SEAY Room: [facility]#: [id number] Admission: 10/01/19 Attend Phys: Lani Escobar, Discharge: Date of : 54 Date of Service: 10/01/19 1540 Report #: [id number] Resting BP: 160/106 mmHg Max BP: 147/96 mmHg ECG Resting ECG: atrial fibrillation, nonspecific T-wave inversion in inferolateral leads, PVC Stress ECG: atrial fibrillation, nonspecific T-wave inversion in inferolateral leads ST Change: None Arrhythmia: VPC's Recovery ECG: atrial fibrillation, nonspecific T-wave inversion in inferolateral leads Recovery ST Change: None Recovery Arrhythmia: VPC's Clinical Reason for Termination: Completed protocol Stress Symptoms: Dyspnea, Mild chest pressure. Exercise duration: 00 min 00 sec Exercise capacity: 1.00 METs The patient tolerated Lexiscan infusion without significant cardiac symptoms. Nurse Comments A 69 YEAR OLD MALE PRESENTED FOR SITTING LEXISCAN R/T INCREASED SOA, ABN EKG AND CHRONIC AFIB. PATIENT TOLERATED TEST WELL. RECOVERY UNREMARKABLE WITH PO CAFFEINE, EFFECTIVE. PATIENT WAS ESCORTED BY STAFF TO NUCLEAR MEDICINE FOR IMAGES. PATIENT WAS STABLE WITH NO COMPLAINTS AT THAT TIME. PERSONAL/PRIVATE CAREGIVER WAS AT PATIENT SIDE FOR HIS ASSISTANCE. Stress ECG Conclusion The baseline 12-lead EKG shows atrial fibrillation with nonspecific T-wave inversion in the inferolateral leads and occasional unifocal premature ventricular contractions. EKGs obtained during and post Lexiscan infusion show atrial fibrillation without significant ST or T wave changes when compared to baseline. NM EXAM: Myocardial Perfusion REST/STRESS Imaging Protocol: Rest Tc-99m/Stress Tc-99m 1 day Resting Data Rest SPECT myocardial perfusion imaging was performed in supine position 30 minutes following the intravenous injection of 10.0 [place] [address] CARDIAC NUCLEAR IMAGING REPORT Name: ED SEAY Room: [facility]#: [id number] Admission: 10/01/19 Attend Phys: Lani Escobar, Discharge: Date of : 54 Date of Service: 10/01/19 1540 Report #: [id number] of Tc-99m Sestamibi. Time of rest injection: 08:30 The images were gated to evaluate regional wall motion and calculate left ventricular ejection fraction. Administration Route: IV Administration Site: Left Arm Pharmacologic Stress Pharmacologic stress test was performed by injecting Regadenoson 0.4 mg IV push followed by the intravenous injection of 33.3 mCi of Tc-99m Sestamibi. Time of stress injection: 10:10 Administration Route: IV Administration Site: Left Arm Heart Rate at time of stress injection: 129 bpm. Gated Stress SPECT was performed 40 minutes after stress injection. The images were gated to evaluate regional wall motion and calculate left ventricular ejection fraction. Prone imaging was performed. Study Quality Study: Good Artifact: No artifact Study Data At rest, the left ventricular ejection fraction was 33%.. Post stress, the left ventricular ejection was 26%.. Perfusion 1.05 there is a focal apical defect that appears more pronounced on stress than resting images suggesting possible focal apical infarct with moderate ritesh-infarct ischemia. Wall Motion There is global LV systolic dysfunction with akinesis in the apex. Nuclear Conclusion ECG Findings: non-diagnostic Clinical Findings: negative for ischemia Nuclear Findings: positive for ischemia Exercise Capacity: not assessed Left Ventricular Function: abnormal Risk Study: [place] [address] CARDIAC NUCLEAR IMAGING REPORT Name: ED SEAY [id number] Admission: 10/01/19 Attend Phys: Lani Escobar, Discharge: Date of : 54 Date of Service: 10/01/19 1540 Report #: [id number] Myocardial perfusion images suggest possible apical infarct with moderate ritesh-infarct ischemia. Global LV systolic function is moderately to severely decreased. This is a high risk study. <Conclusion> The baseline 12-lead EKG shows atrial fibrillation with nonspecific T-wave inversion in the inferolateral leads and occasional unifocal premature ventricular contractions. EKGs obtained during and post Lexiscan infusion show atrial fibrillation without significant ST or T wave changes when compared to baseline. <ELECTRONICALLY SIGNED> By: Vipin Sullivan MD, FACC 10/01/19 1540 [id number] Vipin Sullivan MD, FACC /INF
== END ==
LOC: M.NUC 08-29 11:14
DX: E11.9 Type 2 diabetes mellitus without complications (principal); I48.91 Unspecified atrial fibrillation; R06.02 Shortness of breath; I11.0 Hypertensive heart disease with heart failure; I50.9 Heart failure, unspecified; I43 Cardiomyopathy in diseases classified elsewhere; J44.9 Chronic obstructive pulmonary disease, unspecified; E78.5 Hyperlipidemia, unspecified; E66.9 Obesity, unspecified; Z79.899 Other long term (current) drug therapy; Z88.8 Allergy status to other drugs, medicaments and biological substances

== ENCOUNTER 2020-04-09 11:19 | Inpatient (IN) | payer MEDICARE ==
[~2020-04-09] VITALS: Ht 177.8 cm; Wt 111.3 kg
--- NOTE | ~2020-04-09 | CON ---
[address] [address] CONSULTATION Name: GEENAED Margot Room: [address] IN M.R.#: [id number] Admission: 04/09/20 Attend Phys: Jorge Iniguez Discharge: Date of : 54 Report #: [id number] THIS REPORT FOR: //name// cc: Trung Rashid MD, Bruce D. MD ~ THIS REPORT FOR: //name// CC: Trung Robles DATE OF SERVICE: 04/11/2020 REASON FOR CONSULTATION: Lower extremity ulcers, cold feet. HISTORY OF PRESENT ILLNESS: The patient is a 70-year-old male who presented with complaint of nausea and abdominal bloating. He is unable to lay flat without shortness of breath. He has been identified to have several ulcers on his lower extremities, which apparently he allows his dogs to lick and can make them bleed. He reports that he has been seen in the Wound Center several times on three separate series for wound healing efforts, and once healed, he is discharged and tends to recur. He denies wearing compression stockings or compressive therapy on a routine basis. He denies history of smoking. Most recent set of ulcers and wounds he has had for several months. He reports that he has also had hand pain for the last 3-4 months that is worse when it is cold outside. He is unable to have the inside wirer strength that he would like. His fingertips hurt at times when this happens even with just air conditioning. He used to wear gloves even in the summer time. PAST MEDICAL HISTORY: Significant for acute on chronic congestive heart failure, asthma, atrial fibrillation, hyperglycemia, type 2 diabetes mellitus, chronic lower extremity ulcers, obstructive sleep apnea, paresthesias, pleural effusion, pulmonary embolism, syncope, uncontrolled atrial fibrillation, urinary tract infections, and currently has a urinary tract infection as well. PAST SURGICAL HISTORY: Include debridements in the wound center, rhinoplasty with uvula removal. He also has a history of breast cancer with breast tissue removal. ALLERGIES: ARIMIDEX, RITALIN, PRILOSEC, ACTOS, TAMOXIFEN, TAPE, BACTRIM. REVIEW OF SYSTEMS: A 10-point review of systems negative, except as in the HPI. PHYSICAL EXAMINATION: [place] [address] CONSULTATION Name: ED SEAY Room: [address]#: [id number] Admission: 04/09/20 Attend Phys: Jorge Iniguez Discharge: Date of : 54 Report #: [id number] VITAL SIGNS: Afebrile, vital signs stable. Blood pressure 129/72, temperature max 36.7. GENERAL: The patient is in no acute distress, alert and oriented x 3. HEENT: Head is normocephalic, atraumatic. Extraocular muscles intact. Pupils were equally round and react to light and accommodation. Sclerae are white, nonicteric. NECK: Supple, no thyromegaly, no masses, no lymphadenopathy. HEART: Regular. LUNGS: Crackles at the base bilaterally. ABDOMEN: Soft, nondistended, nontender to palpation. EXTREMITIES: Focused exam of his upper and lower extremities demonstrates a purplish hue in a glove and stocking distribution. He has lower extremity ulcers of the anterior shins bilaterally. These appeared to be dry and not oozing. He has a weakly palpable dorsalis pedis with multiphasic or anterior tibial and posterior tibial signals bilaterally. IMAGING STUDIES: I reviewed his imaging. His arterial duplex demonstrated triphasic waveforms throughout bilaterally, but does have some evidence of tibial disease bilaterally. CT angiogram of the chest, abdomen, and pelvis demonstrates pleural effusions. No evidence of pulmonary embolism. No evidence of abdominal aneurysm. IMPRESSION AND PLAN: The patient is a 70-year-old male with upper and lower extremity cool hands and feet that may be consistent with Raynaud's syndrome. This is complicated with his congestive heart failure and venous insufficiency, which demonstrated swelling of the bilateral lower extremities, resulting in ulcerations, which are chronic. He would benefit from 2-layer compression of the bilateral lower extremities and local wound care. He should be referred to the Wound Center on discharge for continued ongoing care and prevention of further issues. He does not require angiography at this time for wound healing. Thank you for allowing me to participate in this patient's care. Please do not hesitate to call should you have further questions or concerns. By: [id number] Jerez DO /nt
[~2020-04-09 11:19] MED LIST changes: +COREG6.25 MG PO; -LEVOTHYROXIN0.025 MG PO; -NEURONTIN600 MG PO; +NEURONTIN800 MG PO; +SYNTHROID75 MCG PO
[2020-04-09 11:32] VITALS: BP 124/95
[2020-04-09 11:51] LABS: ABSOLUTE BASOPHILS 0.1 thou/uL (0.0-0.2); ABSOLUTE EOSINOPHILS 0.1 thou/uL (0.0-0.7); ABSOLUTE LYMPHOCYTES 1.9 thou/uL (0.8-5.3); ABSOLUTE MONOCYTES 0.8 thou/uL (0.0-1.2); ABSOLUTE NEUTROPHILS 4.4 thou/uL (1.6-8.1); BASOPHILS 0.8 %; EOSINOPHILS 1.9 %; HEMATOCRIT 45.2 % (42.0-52.0); HEMOGLOBIN 14.6 gm/dL (14.0-18.0); MCH 25.9 pg (26.0-34.0); MCHC 32.3 g/dL (28.0-37.0); MCV 80.2 fL (80.0-100.0); MONOCYTES 10.7 %; MPV 8.9 fl. (7.2-11.1); NUCLEATED RBCS 0 /100WBC; PLATELET COUNT* 210 thou/uL (150-400); POLYS 60.6 %; RBC 5.64 mil/uL (4.50-6.00); RDW-CV 17.7 % (10.5-14.5); WBC 7.3 thou/uL (4.0-11.0)
[2020-04-09] MEDS ORDERED: CENTRUM SILVER1 EAC7 PO (11:53)
[2020-04-09] MEDS ORDERED: MEGARED OMEGA-1 EAC1 PO (11:54)
[2020-04-09] MEDS ORDERED: VITAMIN D350 MC1 PO (11:54)
[2020-04-09] MEDS ORDERED: MIDODRINE HCL 55 M1 PO (11:55)
[2020-04-09] MEDS ORDERED: CYTOMEL 5MCG TA5 MC1 PO (11:56)
[2020-04-09] MEDS ORDERED: JARDIANCE10 MG PO (11:57)
[2020-04-09] MEDS ORDERED: GLUCOPHAGE XR750 MG PO (11:57)
[2020-04-09] MEDS ORDERED: LANTUSSOLASTAR SUBQ (11:58)
[2020-04-09 11:59] LABS: CALCIUM 8.2 mg/dL (8.5-10.1); CREATININE 1.5 mg/dL (0.6-1.3); POTASSIUM 4.5 mmol/L (3.5-5.1)
[2020-04-09] MEDS ORDERED: DIGOX250 MCG PO (11:59)
[2020-04-09] MEDS ORDERED: XARELTO20 MG PO (12:01)
[2020-04-09] MEDS ORDERED: PREVACID 24HR15 MG PO (12:01)
[2020-04-09] MEDS ORDERED: PERFOROMIS20 MCG/2 M INH (12:02)
[2020-04-09] MEDS ORDERED: FLONASE 0.05%50 MCG NARES (12:02)
[2020-04-09] MEDS ORDERED: XALATAN2.5 ML OPHTHALMIC (12:02)
[2020-04-09] MEDS ORDERED: DULCOLAX STOOL100 M1 PO (12:02)
[2020-04-09 12:03] LABS: ALBUMIN 3.1 g/dL (3.4-5.0); TOTAL BILIRUBIN 1.3 mg/dL (<0.1-1.0); TOTAL PROTEIN 6.9 g/dL (6.4-8.2)
[2020-04-09] MEDS ORDERED: LIDODERM1 EACH TOP (12:03)
[2020-04-09] MEDS ORDERED: MELATONIN5 MG SUBLING (12:03)
[2020-04-09] MEDS ORDERED: XOPENEX HFA15 GM INH (12:03)
[2020-04-09 12:32] LABS: URINE BLOOD 1+ (Negative); URINE CLARITY CLEAR; URINE COLOR YELLOW; URINE GLUCOSE-RANDOM NEGATIVE (Negative); URINE KETONES NEGATIVE (Negative); URINE LEUKOCYTES-REFLEX NEGATIVE (Negative); URINE NITRITE-REFLEX NEGATIVE (Negative); URINE PROTEIN 3+ (Negative); URINE SPECIFIC GRAVITY >= 1.030 (1.005-1.030)
[2020-04-09 12:34] LABS: ICTOTEST (BILI CONFIRMATORY) Negative (Negative); URINE BILIRUBIN 1+ (Negative)
[2020-04-09 12:45] LABS: BACTERIA-REFLEX 1-9 Few /HPF (None Seen); CRYSTALS None Seen /LPF (None Seen); HYALINE CASTS 4-10 Moderate /LPF (None Seen); MUCUS 0-3 Light strn/LPF (None Seen); SQUAMOUS 0-3 Few /LPF (0-3); URINE RBC 3-10 Few /HPF (0-2); URINE WBC-REFLEX 6-15 Few /HPF (0-5)
[2020-04-09 15:53] VITALS: BP 148/98
[2020-04-09 16:00] VITALS: BP 136/102
--- NOTE | 2020-04-09 16:59 | EKG ---
[place] [address] ELECTROCARDIOGRAM REPORT Name: ED SEAY Room: [address] ADM IN .R.#: [id number] Admission: 04/09/20 Attend Phys: Jeferson Robles Discharge: Date of : 54 Date of Service: 04/09/20 1148 Report #: [id number] THIS REPORT FOR: //name// [facility] ED Test Date: 2020-04-09 Test Time: 11:48:06 Pat Name: ED SEAY Department: Room: [facility] Gender: M Final Cigar And Box Examiner: BROOKS : 1950 Requested By: Miky Esquivel Order Number: [id number] MD: Vipin Sullivan Measurements Intervals [place] Rate: 107 P: [place]: QRS: 35 QRSD: 77 T: 171 QT: 435 QTc: 581 Interpretive Statements Atrial fibrillation Borderline low voltage, extremity leads Nonspecific T abnormalities Prolonged QT interval Compared to ECG 08/03/2018 15:35:35 No significant changes Electronically Signed On 04-09-2020 16:57:19 CDT by Vipin Sullivan [email or web address] <ELECTRONICALLY SIGNED> By: Vipin Sullivan MD, FAC 04/09/20 1657 1148 1148 Vipin Sullivan MD, [facility] /EPI
[2020-04-09 20:30] VITALS: BP 132/93
[2020-04-09 22:12] LABS: CALCIUM 8.1 mg/dL (8.5-10.1); CREATININE 1.4 mg/dL (0.6-1.3); MAGNESIUM 1.6 mg/dL (1.8-2.4); POTASSIUM 4.5 mmol/L (3.5-5.1)
[2020-04-10] VITALS (7 sets, daily range): BP systolic 107–135; BP diastolic 68–106
--- NOTE | 2020-04-10 06:08 | NUR ---
PT CARE ASSUMED AT 1930. SAT MAINTAINED IN O2. SOB AT REST. DENIES PAIN. ALERT AND ORIENTED X4. CALL LIGHT WITHIN REACH AND BED IN LOW POSITION. HOURLY ROUNDING DONE FOR PT SAFETY.
--- NOTE | 2020-04-10 13:32 | NUR ---
ASSUMED CARE OF PATIENT THIS AM AT 0730. PATIENT IS ALERT AND ORIENTED X 4. HE DENIES PAIN THIS AM. PATIENT IS UP IN CHAIR AT BREAKFAST. DR DOUGHERTY IN TO ROUND AND ORDERS WRITTEN. PATIENT WAS GIVEN IV LASIX X 1. PATIENT IS DIURESING WELL. TELE SHOWS A-FIB. PO MAGNESIUM REPLACEMENT GIVEN. WILL CONTINUE TO MONITOR.
--- NOTE | 2020-04-10 16:27 | NUR ---
WOUND NURSE: PATIENT SEEN TO ADDRESS LESIONS ON BLE: PRESENTS WITH 2 TO 3 PLUS PITTING EDEMA IN BLE, FEET ARE COLD, RUBROUS, AND CAPILLARY REFILL IN TOES IS 5 SECONDS BILATERALLY. UNABLE TO PALPATE PULSES. ABLE TO DOPPLER PULSES BIPHASIC, BUT DISTANT BLE. PATIENT REPORTING NEURPATHY. HAS A FULL THICKNESS SKIN LESON ON THE RIGHT TIBIA MEASURING 3.2 X 1.5 X 0.1 CM. THERE IS RED, GRANULATION TISSUE IN THE WOUND BED AND WEEPING SEROUSANGUINOUS DRAINAGE. THERE IS ALSO MULTIPLE SMALL SCABS ON BLE WHICH ARE DRY AND INTACT. CLEANSED WITH SOAP AND WATER, RINSED WITH WATER. THEN PATTED DRY. APPLIED MOISTURIZING LOTION TO INTACT SKIN, THEN APPLIED AQUACEL AG UNDER GAUZE. WRAPPED KERLEX ROLL GAUZE UNDER MIRELLA WRAPS. PATIENT INSTRUCTED ON KEEP BLE ELEVATED AND FEET COVERED TO PROMOTE HEALING. PATIENT STATES HE UNDERSTANDS.
--- NOTE | 2020-04-10 17:25 | NUR ---
SW called pt room with no answer. Pt lives at home alone. Pt has hx of having cane, walker, scooter, bipap and oxygen at home. Pt has dtr as a contact. SW/LATOYA to remain available to assist with safe dc planning if needs arise.
[2020-04-11 04:04] VITALS: BP 121/81
[2020-04-11 06:15] LABS: ANION GAP 5 mmol/L (7-16); BUN 33 mg/dL (7-18); CALCIUM 8.3 mg/dL (8.5-10.1); CHLORIDE 103 mmol/L (98-107); CHOLESTEROL 80 mg/dL (<200); CO2 31 mmol/L (21-32); CREATININE 1.4 mg/dL (0.6-1.3); GLUCOSE 151 mg/dL (70-99); HDL CHOLESTEROL 24 mg/dL (>40); LDL CHOLESTEROL 47 mg/dL (<100); POTASSIUM 4.3 mmol/L (3.5-5.1); SODIUM 139 mmol/L (136-145); TC:HDL 3.3 Ratio (Not establshd); TRIGLYCERIDE 48 mg/dL (<150); VLDL 10 mg/dL (<40)
[2020-04-11 06:16] LABS: SERUM ASSESSMENT CLEAR
--- NOTE | 2020-04-11 07:58 | NUR ---
PT CARE ASSUMED AT 1930. SAT MAINTAINED IN RA. ALERT AND ORIENTED X4. DENIES PAIN AND SOB. CALL LIGHT WITHIN REACH AND BED IN LOW POSITION. HOURLY ROUNDING DONE FOR PT SAFETY.
[2020-04-11 08:00] VITALS: BP 135/95
[2020-04-11 17:35] VITALS: BP 129/72
--- NOTE | 2020-04-11 17:57 | NUR ---
SHANTE RESTING IN BED. UP WITH ASSIST X1 AND WALKER. VSS. LOWER EXTRE WOUNDS WRAPPED AND SEEN BY VASCULAR MOHSEN. HOURLY ROUNDING COMPLETED FOR PATIENT SAFETY
[2020-04-11 20:20] VITALS: BP 141/81
[2020-04-12] VITALS: BP 124/89
[2020-04-12 04:00] VITALS: BP 89/57
[2020-04-12 04:30] VITALS: BP 101/65
--- NOTE | 2020-04-12 06:12 | NUR ---
PT CARE ASSUMED AT 1930. SAT MAINTAINED IN RA, ALERT AND ORIENTED X4. DENIES PAIN AND SOB. CALL LIGHT WITHIN REACH AND BED IN LOW POSITION. HOURLY ROUNDING DONE FOR PT SAFETY.
[2020-04-12 08:00] VITALS: BP 114/71
[2020-04-12] MEDS ORDERED: LASIX 40 MG TAB40 MG PO (10:01)
[2020-04-12] MEDS ORDERED: SPIRONOLACTONE25 M1 PO (10:02)
--- NOTE | 2020-04-14 15:21 | CON ---
[address] [address] CONSULTATION Name: ED SEAY Room: [address] IN M.R.#: [id number] Admission: 04/09/20 Attend Phys: Jorge Iniguez Discharge: 04/12/20 Date of : 54 Report #: [id number] THIS REPORT FOR: //name// cc: Trung Rashid MD, Bruce D. MD ~ THIS REPORT FOR: //name// CC: TRUNG Robles DATE OF SERVICE: 04/10/2020 CARDIOLOGY CONSULTATION HISTORY OF PRESENT ILLNESS: The patient is a 70-year-old single white male who I was asked to see in the hospital today after he complained of being short of breath. The patient has an extensive and complicated past medical history. He has a history of a nonischemic cardiomyopathy with previous heart catheterization showing no significant coronary artery disease. He has a previous history of atrial fibrillation, apparently was cardioverted in the past, but developed recurrent atrial fibrillation and decided aim for rate control only. He had an ICD [place] in [address] Ed Wong. In the past, he has a history of hypotension and could not tolerate an MIRELLA inhibitor or ARB because of orthostatic hypotension. He has been on midodrine. He has a history of chronic venous stasis and has been in the wound clinic in the past because of venous stasis ulcers. He has a history of sleep apnea, uses CPAP. Recent nuclear stress test showed inferior scar, but no significant ischemia, ejection fraction 33%. Echocardiogram last year showed an ejection fraction of 40%. He has had no recent discharges of defibrillator. Denied chest pain. He does get short of breath if he over exerts himself. He has had no increase in edema. He was doing well until a week ago, he had an episode of vomiting and nausea. This week, he felt bloating. Denies any diarrhea or blood in his vomit. He has had difficulty sleeping. He finally drove himself to the Emergency Room last night. He noted some abdominal discomfort. He felt as if he needed to pass gas. He was admitted for further evaluation and treatment. PAST MEDICAL HISTORY: Significant for history of breast cancer. He had mastectomy followed by chemotherapy years ago. He has a history of diabetes and hyperlipidemia. MEDICATIONS: Include carvedilol, digoxin, Jardiance, Flonase, Neurontin, insulin, Prevacid, Synthroid, midodrine 3 times a day, pravastatin, and Xarelto. ALLERGIES: HE HAS INTOLERANCE TO MULTIPLE MEDICATIONS INCLUDING OMEPRAZOLE [place] [address] CONSULTATION Name: ED SEAY Room: [address] IN M..#: [id number] Admission: 04/09/20 Attend Phys: Jorge Iniguez Discharge: 04/12/20 Date of : 54 Report #: [id number] REVIEW OF SYSTEMS: He is overweight, standing 5 feet 10 inches and weighing 214 pounds. No history of stroke, asthma, liver disease, kidney disease, psychiatric illness or chronic skin condition. He has a history of COPD, uses inhaler. PHYSICAL EXAMINATION: GENERAL: Revealed an elderly male, lying in bed, appeared in no distress. VITAL SIGNS: He had a blood pressure of 120/60, pulse 60, and he was afebrile. HEENT: He was anicteric. Conjunctivae are pink. Mucous membranes moist. NECK: Veins do not appear distended. No carotid bruits. CHEST: Clear to auscultation. CARDIOVASCULAR: Regular rate and rhythm. ABDOMEN: Soft, mildly tender. EXTREMITIES: Had no significant edema. SKIN: Cool and dry. NEUROLOGIC: Nonfocal. DIAGNOSTIC DATA: His ECG on admission showed atrial fibrillation with an increased ventricular response rate, nonspecific ST and T-wave change. His chest x-ray showed cardiomegaly, clear lung hager, and some atelectasis. CT scan of the abdomen showed nodular appearance of the liver consistent with steatosis, small amount of ascites, gallstones, sludge, thickened gallbladder wall, diverticulosis, and anasarca. He had a CT scan of the chest using a PE protocol that showed no pulmonary embolus, large effusions, and atelectasis. LABORATORY DATA: Sodium 136, BUN 28, creatinine 1.4, and glucose 225. His liver function studies were normal. Albumin 3.1. His BNP 10,387. His white blood cell count 7.3 and hemoglobin 14.6. IMPRESSION AND RECOMMENDATIONS: 1. Diabetes. 2. Sleep apnea. 3. Mild cardiomyopathy. The patient is on beta fatemeh and digoxin. I would not recommend an ARB and MIRELLA inhibitor because of low blood pressure. I would consider adding Aldactone. 4. Atrial fibrillation. Rate controlled with beta-fatemeh and digoxin. I would continue chronic anticoagulation with Xarelto. 5. Obesity. 6. Hyperlipidemia. The patient is on a statin drug. 7. History of orthostatic hypotension. The patient is on midodrine. 8. Previous insertion of an ICD[place] [address] CONSULTATION Name: ED SEAY Room: [address] [facility] IN ..#: [id number] Admission: 04/09/20 Attend Phys: Jorge Iniguez Discharge: 04/12/20 Date of : 54 Report #: [id number] 9. History of breast cancer. 10. Asthma. <ELECTRONICALLY SIGNED> By: Rober Christine MD, FACC 04/14/20 1521 0947 [id number] Christine MD, FACC /nt
== END 2020-04-12 11:53 | disposition home or self-care (01) | DRG 292 ==
LOC: M.ERS 11:19 → M.TBA-ER 14:15 → M.2W 14:15
PROVIDERS: Emergency Medicine; Internal Medicine Cardiovascular Disease; ADMIT Internal Medicine
DX: I50.23 Acute on chronic systolic (congestive) heart failure (principal); N39.0 Urinary tract infection, site not specified; J98.11 Atelectasis; D68.59 Other primary thrombophilia; N17.9 Acute kidney failure, unspecified; I42.9 Cardiomyopathy, unspecified; L97.929 Non-pressure chronic ulcer of unspecified part of left lower leg with unspecified severity; L97.919 Non-pressure chronic ulcer of unspecified part of right lower leg with unspecified severity; G47.33 Obstructive sleep apnea (adult) (pediatric); E66.9 Obesity, unspecified; I87.8 Other specified disorders of veins; I73.00 Raynaud's syndrome without gangrene; E11.22 Type 2 diabetes mellitus with diabetic chronic kidney disease; N18.3 Chronic kidney disease, stage 3 (moderate); I48.91 Unspecified atrial fibrillation; E03.9 Hypothyroidism, unspecified; E78.5 Hyperlipidemia, unspecified; F41.9 Anxiety disorder, unspecified; K21.9 Gastro-esophageal reflux disease without esophagitis; D64.9 Anemia, unspecified; G89.29 Other chronic pain; K52.9 Noninfective gastroenteritis and colitis, unspecified; E11.51 Type 2 diabetes mellitus with diabetic peripheral angiopathy without gangrene; J45.909 Unspecified asthma, uncomplicated; Z85.3 Personal history of malignant neoplasm of breast; Z86.11 Personal history of tuberculosis; Z79.01 Long term (current) use of anticoagulants; Z79.4 Long term (current) use of insulin; Z79.899 Other long term (current) drug therapy; Z88.1 Allergy status to other antibiotic agents; Z88.2 Allergy status to sulfonamides; Z88.8 Allergy status to other drugs, medicaments and biological substances; Z91.048 Other nonmedicinal substance allergy status; Z91.09 Other allergy status, other than to drugs and biological substances; Z99.81 Dependence on supplemental oxygen; Z95.810 Presence of automatic (implantable) cardiac defibrillator; Z92.21 Personal history of antineoplastic chemotherapy; Z68.35 Body mass index [BMI] 35.0-35.9, adult; Z86.711 Personal history of pulmonary embolism; Z79.84 Long term (current) use of oral hypoglycemic drugs; Z90.11 Acquired absence of right breast and nipple

== ENCOUNTER 2021-02-02 17:46 | Inpatient (IN) | payer MEDICARE ==
[~2021-02-02] VITALS: Ht 177.8 cm; Wt 102.1 kg
[~2021-02-02 17:46] MED LIST changes: +CENTRUM SILVER1 EAC7 PO; +CYTOMEL 5MCG TA5 MC1 PO; +DIGOX250 MCG PO; +DULCOLAX STOOL100 M1 PO; +FLONASE 0.05%50 MCG NARES; +GLUCOPHAGE XR750 MG PO; +JARDIANCE10 MG PO; +LASIX 40 MG TAB40 MG PO; +LIDODERM1 EACH TOP; +MEGARED OMEGA-1 EAC1 PO; +MELATONIN5 MG SUBLING; +PERFOROMIS20 MCG/2 M INH; +PREVACID 24HR15 MG PO; +SPIRONOLACTONE25 M1 PO; +SYNTHROID100 MC1 PO; -SYNTHROID75 MCG PO; +VITAMIN D350 MC1 PO; +XALATAN2.5 ML OPHTHALMIC; +XARELTO20 MG PO; +XOPENEX HFA15 GM INH
[2021-02-02 17:52] VITALS: BP 160/113
[2021-02-02] MEDS ORDERED: [UNRECOGNIZED DRUG - OTHER] PO (18:04)
[2021-02-02] MEDS ORDERED: JARDIANCE10 MG PO (18:06)
[2021-02-02] MEDS ORDERED: PREVACID30 MG PO (18:11)
[2021-02-02] MEDS ORDERED: VYZULTA5 ML OPHTHALMIC (18:13)
[2021-02-02 18:32] LABS: ABSOLUTE BASOPHILS 0.1 thou/uL (0.0-0.2); ABSOLUTE EOSINOPHILS 0.2 thou/uL (0.0-0.7); ABSOLUTE LYMPHOCYTES 1.4 thou/uL (0.8-5.3); ABSOLUTE MONOCYTES 0.7 thou/uL (0.0-1.2); ABSOLUTE NEUTROPHILS 5.2 thou/uL (1.6-8.1); BASOPHILS 0.9 %; EOSINOPHILS 2.8 %; HEMATOCRIT 51.5 % (42.0-52.0); HEMOGLOBIN 16.7 gm/dL (14.0-18.0); LYMPHOCYTES 18.4 %; MCH 28.2 pg (26.0-34.0); MCHC 32.3 g/dL (28.0-37.0); MCV 87.1 fL (80.0-100.0); MPV 8.6 fl. (7.2-11.1); NUCLEATED RBCS 0 /100WBC; PLATELET COUNT* 175 thou/uL (150-400); POLYS 68.9 %; RBC 5.91 mil/uL (4.50-6.00); RDW-CV 14.7 % (10.5-14.5); WBC 7.5 thou/uL (4.0-11.0)
[2021-02-02 18:44] LABS: CALCIUM 8.6 mg/dL (8.5-10.1); CREATININE 1.2 mg/dL (0.6-1.3); POTASSIUM 4.3 mmol/L (3.5-5.1)
[2021-02-02 18:47] LABS: APTT 27.4 Seconds (25.0-31.3); INR 1.1; PROTIME 12.1 Seconds (9.20-11.50)
[2021-02-02 18:55] LABS: ALBUMIN 3.3 g/dL (3.4-5.0); TOTAL BILIRUBIN 1.6 mg/dL (<0.1-1.0); TOTAL PROTEIN 7.3 g/dL (6.4-8.2)
[2021-02-02 20:24] LABS: URINE BILIRUBIN NEGATIVE (Negative); URINE BLOOD 2+ (Negative); URINE CLARITY CLEAR; URINE COLOR YELLOW; URINE GLUCOSE-RANDOM 1+ (Negative); URINE KETONES NEGATIVE (Negative); URINE LEUKOCYTES-REFLEX NEGATIVE (Negative); URINE NITRITE-REFLEX NEGATIVE (Negative); URINE PROTEIN 2+ (Negative); URINE UROBILINOGEN 0.2 E.U./dl (0.2-1.0)
[2021-02-02 20:31] VITALS: BP 153/107
[2021-02-02 20:32] LABS: SQUAMOUS 0-3 Few /LPF (0-3)
[2021-02-02 20:33] LABS: URINE RBC None Seen /HPF (0-2); URINE WBC-REFLEX None Seen /HPF (0-5)
[2021-02-02 20:34] LABS: CASTS None Seen /LPF (None Seen); CRYSTALS None Seen /LPF (None Seen); MUCUS None Seen strn/LPF (None Seen)
[2021-02-02 21:00] VITALS: BP 144/106
[2021-02-03] VITALS: BP 158/97
[2021-02-03 00:48] LABS: HEMATOCRIT 49.9 % (42.0-52.0); MCH 28.2 pg (26.0-34.0); MPV 8.7 fl. (7.2-11.1); RBC 5.67 mil/uL (4.50-6.00); RDW-CV 14.6 % (10.5-14.5); WBC 7.8 thou/uL (4.0-11.0)
[2021-02-03 01:11] LABS: ALBUMIN 2.8 g/dL (3.4-5.0); CALCIUM 8.5 mg/dL (8.5-10.1); CREATININE 1.4 mg/dL (0.6-1.3); POTASSIUM 4.8 mmol/L (3.5-5.1); TOTAL BILIRUBIN 1.4 mg/dL (<0.1-1.0)
[2021-02-03 04:11] VITALS: BP 116/81
[2021-02-03 08:19] VITALS: BP 141/94
--- NOTE | 2021-02-03 09:36 | EKG ---
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 : 1950 Requested By: Aby Pradhan Order Number: [id number] MD: Rober Christine Measurements Intervals [place] Rate: 108 P: CT: QRS: 10 QRSD: 76 T: 241 QT: 451 QTc: 605 Interpretive Statements Atrial fibrillation Low voltage, extremity leads Nonspecific T abnormalities, lateral leads Prolonged QT interval Compared to ECG 04/09/2020 11:48:06 No significant changes Electronically Signed On 02-03-2021 9:36:01 CDT by Rober Christine [email or web address] <ELECTRONICALLY SIGNED> By: Rober Christine MD, [facility] 02/03/21 0936 181 14 Rober Christine MD, [facility] /EPI
[2021-02-03 12:11] VITALS: BP 128/81
[2021-02-03 15:45] VITALS: BP 125/66
[2021-02-03 20:00] VITALS: BP 129/86
[2021-02-04] VITALS: BP 159/100
[2021-02-04 08:00] VITALS: BP 131/78
[2021-02-04 12:16] VITALS: BP 105/64
[2021-02-04 16:00] VITALS: BP 141/91
--- NOTE | 2021-02-04 17:21 | 2DMMODE ---
[place] [address] 2 D/M-MODE ECHOCARDIOGRAM Name: ED SEAY Room: [address] IN [facility]#: [id number] Admission: 02/02/21 Attend Phys: Michael Verde, Discharge: Date of : 54 Date of Service: 02/04/21 1720 Report #: [id number] THIS REPORT FOR: cc: Trung Rashid MD, Bruce D. MD Liston, Michael J. MD [facility] ~ APPROVED REPORT Study performed: 02/04/2021 14:12:56 EXAM: Comprehensive 2D, Doppler, and color-flow Echocardiogram Patient Location: In-Patient Room #: 207 Status: routine BSA: 2.19 HR: 51 bpm BP: 159/100 mmHg Rhythm: NSR Other Information Study Quality: Good Indications Congestive Heart Failure 2D Dimensions IVSd: 11.21 (7-11mm) LVOT Diam: 20.93 (18-24mm) LVDd: 50.65 mm PWd: 11.93 (7-11mm) Ascending Ao: 35.54 (22-36mm) LVDs: 46.51 (25-40mm) Aortic Root: 36.31 mm Volumes Left Atrial Volume (Systole) LA ESV Index: 36.70 mL/m2 Aortic Valve AoV Peak Arash.: 1.15 m/s AO Peak Gr.: 5.28 mmHg LVOT Max P.05 mmHg AO Mean Gr.: 2.98 mmHg LVOT Mean P.52 mmHg LVOT Max V: 0.87 m/s AO V2 VTI: 18.94 cm LVOT Mean V: 0.57 m/s WILY (VTI): 2.52 cm2 LVOT V1 VTI: 13.86 [place] [address] 2 D/M-MODE ECHOCARDIOGRAM Name: ED SEAY Room: [address] IN [facility].#: [id number] Admission: 02/02/21 Attend Phys: Michael Verde, Discharge: Date of : 54 Date of Service: 02/04/21 1720 Report #: [id number] TDI Medial E' Arash.: 0.07 m/s Lateral E' Arash.: 0.08 m/s Pulmonary Valve PV Peak Arash.: 0.64 m/s PV Peak Gr.: 1.65 mmHg Tricuspid Valve RAP Estimate: 15.00 mmHg TR Peak Gr.: 26.86 mmHg RVSP: 41.00 mmHg PA Pressure: 41.00 mmHg Left Ventricle The left ventricle is normal size. There is severe global hypokinesis There is normal left ventricular wall thickness. Left ventricular ejection fraction is severely decreased. LVEF is 25-30%. This study is not technically sufficient to allow evaluation of the LV diastolic function due to atrial fibrillation. Right Ventricle Right ventricle is mildly dilated. The right ventricular systolic function is normal. Pacing ICD lead present in the right ventricle Atria Left atrium is mildly dilated. Right atrium is mildly dilated. Aortic Valve The aortic valve is normal in structure. Trace aortic regurgitation. There is no aortic valvular stenosis. Mitral Valve The mitral valve is normal in structure. Mild mitral regurgitation. No evidence of mitral valve stenosis. Tricuspid Valve The tricuspid valve is normal in structure. Mild tricuspid regurgitation. The RVSP is 40-45 mmHg. Pulmonic Valve The pulmonary valve is normal in structure. There is no pulmonic valvular regurgitation. Great Vessels The aortic root is normal in size. IVC is dilated and collapses <50% [place] [address] 2 D/M-MODE ECHOCARDIOGRAM Name: ED SEAY Room: [address]#: [id number] Admission: 02/02/21 Attend Phys: Michael Verde, Discharge: Date of : 54 Date of Service: 02/04/21 1720 Report #: [id number] Pericardium There is no pericardial effusion. <Conclusion> The left ventricle is normal size. There is normal left ventricular wall thickness. Left ventricular ejection fraction is severely decreased. LVEF is 25-30%. There is severe global hypokinesis Pacing ICD lead present in the right ventricle Left atrium is mildly dilated. Right ventricle is mildly dilated. Trace aortic regurgitation. Mild mitral regurgitation. Mild tricuspid regurgitation. The RVSP is 40-45 mmHg. IVC is dilated and collapses <50% with inspiration. <ELECTRONICALLY SIGNED> By: Vipin Sullivan MD, FACC 02/04/211719 19 19 Vipin Sullivan MD, FACC /INF
[2021-02-04 20:00] VITALS: BP 129/75
[2021-02-04 23:45] VITALS: BP 137/79
[2021-02-05 04:04] VITALS: BP 132/79
[2021-02-05 11:06] VITALS: BP 125/74
[2021-02-05 12:00] VITALS: BP 124/67
[2021-02-05 13:04] VITALS: BP 124/67
[2021-02-05 16:00] VITALS: BP 111/67
[2021-02-05 20:24] VITALS: BP 128/78
[2021-02-06 00:47] VITALS: BP 144/58
[2021-02-06 03:59] LABS: HEMATOCRIT 46.2 % (42.0-52.0); HEMOGLOBIN 14.8 gm/dL (14.0-18.0); MCH 27.9 pg (26.0-34.0); MCV 87.2 fL (80.0-100.0); MPV 8.6 fl. (7.2-11.1); RBC 5.3 mil/uL (4.50-6.00); RDW-CV 14.8 % (10.5-14.5); WBC 7.8 thou/uL (4.0-11.0)
[2021-02-06 04:20] LABS: ALBUMIN 2.4 g/dL (3.4-5.0); ALKALINE PHOSPHATASE 92 U/L (46-116); ANION GAP 7 mmol/L (7-16); BUN 39 mg/dL (7-18); CHLORIDE 102 mmol/L (98-107); CHOLESTEROL 99 mg/dL (<200); CO2 32 mmol/L (21-32); CREATININE 1.6 mg/dL (0.6-1.3); GLUCOSE 181 mg/dL (70-99); HDL CHOLESTEROL 39 mg/dL (>40); LDL CHOLESTEROL 47 mg/dL (<100); MAGNESIUM 1.8 mg/dL (1.8-2.4); POTASSIUM 4.8 mmol/L (3.5-5.1); SGOT 14 U/L (15-37); SGPT 13 U/L (30-65); SODIUM 141 mmol/L (136-145); TC:HDL 2.5 Ratio (Not establshd); TOTAL BILIRUBIN 0.8 mg/dL (<0.1-1.0); TOTAL PROTEIN 6.2 g/dL (6.4-8.2); TRIGLYCERIDE 67 mg/dL (<150); VLDL 13 mg/dL (<40)
[2021-02-06 04:26] LABS: SERUM ASSESSMENT Clear
[2021-02-06 05:01] VITALS: BP 134/76
[2021-02-06 08:00] VITALS: BP 140/66
[2021-02-06 12:25] VITALS: BP 111/65
[2021-02-06 16:45] VITALS: BP 117/69
[2021-02-06 20:00] VITALS: BP 119/72
[2021-02-07 00:07] VITALS: BP 146/87
[2021-02-07 04:30] VITALS: BP 107/80
[2021-02-07 04:45] LABS: CALCIUM 9.1 mg/dL (8.5-10.1); CREATININE 1.5 mg/dL (0.6-1.3); POTASSIUM 4.3 mmol/L (3.5-5.1)
[2021-02-07 08:00] VITALS: BP 144/87
[2021-02-07] MEDS ORDERED: AMOX TR-K CLV1 EAC4 PO (08:53)
[2021-02-07] MEDS ORDERED: SPIRONOLACTONE25 MG PO (08:53)
[2021-02-07] MEDS ORDERED: COREG6.25 MG PO (08:56)
[2021-02-07] MEDS ORDERED: LASIX 40 MG TAB40 MG PO (08:56)
[2021-02-07] MEDS ORDERED: NYAMYC15 GM TOP (08:58)
--- NOTE | 2021-02-07 11:18 | CON ---
[address] [address] CONSULTATION Name: GEENAED Margot Room: [address] IN M.R.#: [id number] Admission: 02/02/21 Attend Phys: Michael Verde MD Discharge: Date of : 54 Report #: [id number] THIS REPORT FOR: cc: Trung Rashid MD, Bruce D. MD ~ Rober Christine MD [facility] DATE OF SERVICE: 02/05/2021 CARDIOLOGY CONSULTATION HISTORY OF PRESENT ILLNESS: The patient is a 70-year-old single white male who I was asked to see in the hospital today after he complained of being short of breath. The patient has an extensive and complicated past medical history. He has a history of a nonischemic cardiomyopathy. He has a history of permanent atrial fibrillation. He had a previous ICD implanted by Dr. Wong years ago for primary prevention. He was last seen by my nurse practitioner in November of this year. His defibrillator was checked at home with a transmitter. The patient has been on midodrine in the past for low blood pressure. The patient has not been taking Lasix or Aldactone recently. He is not very active at this time. Recently, he complained of being more short of breath, lower extremity swelling, increased abdominal girth. He denied any fever, cough, chest pain. He notes occasional flutter in his chest, but no discharges of defibrillator. He has had no syncope. He came to the hospital and was admitted a few days ago for further evaluation and treatment. PAST MEDICAL HISTORY: Otherwise significant for history of breast cancer, having mastectomy and chemotherapy. He apparently was cardioverted in the past. He does have a history of diabetes and hyperlipidemia. MEDICATIONS: His current medications include carvedilol, digoxin, insulin, Jardiance. He is currently followed by an aboriginal home school liaison officer. He is on Synthroid, pravastatin, Xarelto. ALLERGIES: HE HAS PREVIOUS INTOLERANCE TO MULTIPLE MEDICATIONS INCLUDING ACTOS, TAMOXIFEN. FAMILY HISTORY: His mother had a pacemaker. SOCIAL HISTORY: He is single, lives by himself. He has not worked at this time. No smoking or alcohol abuse. REVIEW OF SYSTEMS: He has a history of sleep apnea, uses CPAP. No history of stroke, asthma, liver disease. He has chronic kidney disease. [place] [address] CONSULTATION Name: ED SEAY Room: [address]#: [id number] Admission: 02/02/21 Attend Phys: Michael Verde MD Discharge: Date of : 54 Report #: [id number] PHYSICAL EXAMINATION: GENERAL: Revealed a large, elderly male, who appeared in no acute distress. VITAL SIGNS: Blood pressure 120/70, pulse 70, he is afebrile. HEENT: He was anicteric. Conjunctivae pink. Mucous membranes are moist. NECK: Veins do not appear distended. CHEST: Clear to auscultation. CARDIOVASCULAR: Regular rate and rhythm. ABDOMEN: Obese. EXTREMITIES: Had trace edema. SKIN: Cool and dry. NEUROLOGIC: Nonfocal. DIAGNOSTIC DATA: His workup, he actually had an echocardiogram done here at [facility] 2 days ago after admission that showed ejection fraction of 30%, biatrial enlargement, mild mitral regurgitation. His last nuclear stress test in 2019 here at [facility] showed ejection fraction of 30%, showed an apical defect that was fixed with some ritesh-infarct ischemia. His lab work, he had a chest x-ray on admission that showed cardiomegaly, small left pleural effusion, atelectasis, mild vascular congestion. LABORATORY WORK: Sodium 138, BUN 18, creatinine 1.4. Liver function studies were normal. BNP 8673. In March, he had a cholesterol 80, triglycerides 48, HDL 24, LDL 47. In March TSH was 2.6. His white blood cell count 7.8, hemoglobin 16. On admission, he had COVID antigen stat test that was negative. Previous carotid Doppler study showed no significant stenosis. IMPRESSION AND RECOMMENDATIONS: 1. Permanent atrial fibrillation. Rate controlled with beta-fatemeh and nonischemic cardiomyopathy. The patient has not been on an MIRELLA inhibitor nor ARB because of history of hypotension and chronic kidney disease. I would consider adding Aldactone. 2. Previous implantation of defibrillator. 3. Diabetes. The patient followed by Endocrinology. 4. Sleep apnea. The patient uses CPAP. 5. Hyperlipidemia. The patient is on a statin drug. 6. History of breast cancer. <ELECTRONICALLY SIGNED> By: Rober Christine MD, [facility] 02/07/21 1118 1456 1842Dchristian Christine MD, FAC /nt
[2021-02-07 13:17] VITALS: BP 124/67
== END 2021-02-07 13:45 | disposition home health service (06) | DRG 371 ==
LOC: M.ERS 17:46 → M.TBA-ER 20:06 → M.2W 20:06
PROVIDERS: Internal Medicine; Internal Medicine Cardiovascular Disease; Nurse Practitioner Family; ADMIT Internal Medicine; ATTEND Internal Medicine
DX: A04.9 Bacterial intestinal infection, unspecified (principal); I50.43 Acute on chronic combined systolic (congestive) and diastolic (congestive) heart failure; N17.9 Acute kidney failure, unspecified; I48.21 Permanent atrial fibrillation; I42.8 Other cardiomyopathies; K74.60 Unspecified cirrhosis of liver; R21 Rash and other nonspecific skin eruption; E66.9 Obesity, unspecified; J30.9 Allergic rhinitis, unspecified; E11.65 Type 2 diabetes mellitus with hyperglycemia; G47.33 Obstructive sleep apnea (adult) (pediatric); K80.20 Calculus of gallbladder without cholecystitis without obstruction; E78.5 Hyperlipidemia, unspecified; Z20.822 Contact with and (suspected) exposure to COVID-19; Z86.711 Personal history of pulmonary embolism; Z85.3 Personal history of malignant neoplasm of breast; Z90.49 Acquired absence of other specified parts of digestive tract; Z79.4 Long term (current) use of insulin; Z79.899 Other long term (current) drug therapy; Z88.2 Allergy status to sulfonamides; Z88.8 Allergy status to other drugs, medicaments and biological substances; Z91.09 Other allergy status, other than to drugs and biological substances; Z92.21 Personal history of antineoplastic chemotherapy; Z68.32 Body mass index [BMI] 32.0-32.9, adult; Z90.10 Acquired absence of unspecified breast and nipple; Z95.810 Presence of automatic (implantable) cardiac defibrillator

== ENCOUNTER 2021-02-16 09:38 | Emergency (ER) | payer MEDICARE ==
[~2021-02-16] VITALS: Ht 177.8 cm; Wt 104.3 kg
[~2021-02-16 09:38] MED LIST changes: +AMOX TR-K CLV1 EAC4 PO; +NYAMYC15 GM TOP; +PREVACID30 MG PO; +SPIRONOLACTONE25 MG PO; +VYZULTA5 ML OPHTHALMIC; +[UNRECOGNIZED DRUG - OTHER] PO
[2021-02-16 10:26] LABS: ABSOLUTE BASOPHILS 0.1 thou/uL (0.0-0.2); ABSOLUTE EOSINOPHILS 0.2 thou/uL (0.0-0.7); ABSOLUTE LYMPHOCYTES 1.8 thou/uL (0.8-5.3); ABSOLUTE MONOCYTES 0.8 thou/uL (0.0-1.2); ABSOLUTE NEUTROPHILS 6.1 thou/uL (1.6-8.1); BASOPHILS 1.3 %; EOSINOPHILS 1.7 %; HEMATOCRIT 48.6 % (42.0-52.0); HEMOGLOBIN 15.6 gm/dL (14.0-18.0); LYMPHOCYTES 19.7 %; MCH 27.8 pg (26.0-34.0); MCHC 32.1 g/dL (28.0-37.0); MCV 86.4 fL (80.0-100.0); MONOCYTES 8.9 %; MPV 9.4 fl. (7.2-11.1); NUCLEATED RBCS 0 /100WBC; PLATELET COUNT* 180 thou/uL (150-400); POLYS 68.4 %; RBC 5.63 mil/uL (4.50-6.00); RDW-CV 14.5 % (10.5-14.5); WBC 8.9 thou/uL (4.0-11.0)
[2021-02-16 10:36] LABS: ALBUMIN 2.9 g/dL (3.4-5.0); CALCIUM 8.8 mg/dL (8.5-10.1); CREATININE 1.3 mg/dL (0.6-1.3); POTASSIUM 5.2 mmol/L (3.5-5.1); TOTAL PROTEIN 7.4 g/dL (6.4-8.2)
[2021-02-16 11:39] LABS: URINE BILIRUBIN NEGATIVE (Negative); URINE BLOOD 1+ (Negative); URINE CLARITY CLEAR; URINE COLOR YELLOW; URINE GLUCOSE-RANDOM 3+ (Negative); URINE KETONES NEGATIVE (Negative); URINE LEUKOCYTES NEGATIVE (Negative); URINE NITRITE NEGATIVE (Negative); URINE PROTEIN 2+ (Negative); URINE UROBILINOGEN 0.2 E.U./dl (0.2-1.0)
[2021-02-16 11:54] LABS: BACTERIA 1-9 Few /HPF (None Seen); CASTS None Seen /LPF (None Seen); CRYSTALS None Seen /LPF (None Seen); MUCUS None Seen strn/LPF (None Seen); SQUAMOUS 4-10 Moderate /LPF (0-3); TRANSITIONAL EPITHEL CELL 0-3 Few /LPF (None Seen); URINE RBC 0-2 Rare /HPF (0-2); URINE WBC 0-5 Rare /HPF (0-5)
[2021-02-16 12:47] VITALS: BP 148/93
== END 2021-02-16 12:47 | disposition home or self-care (01) ==
LOC: M.ERS 09:38
PROVIDERS: Emergency Medicine
DX: E11.65 Type 2 diabetes mellitus with hyperglycemia (principal); R11.0 Nausea; Z91.19 Patient's noncompliance with other medical treatment and regimen; I48.91 Unspecified atrial fibrillation; Z85.3 Personal history of malignant neoplasm of breast; Z90.49 Acquired absence of other specified parts of digestive tract; Z79.899 Other long term (current) drug therapy; Z79.4 Long term (current) use of insulin; Z88.8 Allergy status to other drugs, medicaments and biological substances; Z91.048 Other nonmedicinal substance allergy status; Z88.2 Allergy status to sulfonamides

== ENCOUNTER → 2021-03-01 | Outpatient (CLI) | payer MEDICARE ==
[2021-03-01 12:29] LABS: ALBUMIN 2.9 g/dL (3.4-5.0); CALCIUM 9.3 mg/dL (8.5-10.1); CREATININE 1.7 mg/dL (0.6-1.3); POTASSIUM 5.6 mmol/L (3.5-5.1); TOTAL BILIRUBIN 1.1 mg/dL (<0.1-1.0); TOTAL PROTEIN 7.3 g/dL (6.4-8.2)
== END ==
LOC: M.LAB 11:31
PROVIDERS: ATTEND Registered Nurse
DX: I50.23 Acute on chronic systolic (congestive) heart failure (principal)

== ENCOUNTER 2021-09-30 18:36 | Inpatient (IN) | payer MEDICARE ==
[~2021-09-30] VITALS: Ht 177.8 cm; Wt 115.2 kg
[2021-09-30 18:38] VITALS: BP 133/91
[2021-09-30 20:14] LABS: URINE BLOOD 2+ (Negative); URINE CLARITY CLEAR; URINE COLOR YELLOW; URINE GLUCOSE-RANDOM NEGATIVE (Negative); URINE KETONES NEGATIVE (Negative); URINE LEUKOCYTES-REFLEX NEGATIVE (Negative); URINE NITRITE-REFLEX NEGATIVE (Negative); URINE PROTEIN 3+ (Negative); URINE SPECIFIC GRAVITY >= 1.030 (1.005-1.030); URINE UROBILINOGEN 0.2 E.U./dl (0.2-1.0)
[2021-09-30 20:18] LABS: URINE BILIRUBIN 2+ (Negative)
[2021-09-30 20:19] LABS: ICTOTEST (BILI CONFIRMATORY) Negative (Negative)
[2021-09-30 20:26] LABS: BACTERIA-REFLEX None Seen /HPF (None Seen); SQUAMOUS 0-3 Few /LPF (0-3); URINE RBC 0-2 Rare /HPF (0-2); URINE WBC-REFLEX 0-5 Rare /HPF (0-5)
[2021-09-30 20:27] LABS: CRYSTALS None Seen /LPF (None Seen); FINE GRANULAR CASTS 0-3 Few /LPF (None Seen); HYALINE CASTS 0-3 Few /LPF (None Seen)
[2021-09-30 20:58] LABS: ABSOLUTE EOSINOPHILS 0.2 thou/uL (0.0-0.7); ABSOLUTE MONOCYTES 0.7 thou/uL (0.0-1.2); ABSOLUTE NEUTROPHILS 6.9 thou/uL (1.6-8.1); BASOPHILS 0.4 %; EOSINOPHILS 2.4 %; HEMOGLOBIN 15.2 gm/dL (14.0-18.0); MCH 26.8 pg (26.0-34.0); MCHC 31.7 g/dL (28.0-37.0); MCV 84.5 fL (80.0-100.0); MONOCYTES 8.3 %; MPV 8.5 fl. (7.2-11.1); NUCLEATED RBCS 0 /100WBC; PLATELET COUNT* 257 thou/uL (150-400); POLYS 77.9 %; RBC 5.69 mil/uL (4.50-6.00); RDW-CV 17.2 % (10.5-14.5); WBC 8.9 thou/uL (4.0-11.0)
[2021-09-30 21:04] LABS: CALCIUM 8.2 mg/dL (8.5-10.1); CREATININE 1.3 mg/dL (0.6-1.3)
[2021-09-30 21:06] LABS: APTT 36.4 Seconds (25.0-31.3); INR 1.6; PROTIME 16.1 Seconds (9.20-11.50)
[2021-09-30 21:08] LABS: ALBUMIN 2.3 g/dL (3.4-5.0); TOTAL BILIRUBIN 1.2 mg/dL (<0.1-1.0); TOTAL PROTEIN 7.4 g/dL (6.4-8.2)
[2021-10-01] VITALS (7 sets, daily range): BP systolic 113–136; BP diastolic 77–107
--- NOTE | 2021-10-01 09:41 | NUR ---
cm completed initial assessment with pt who indicated he lives in a house alone, there are no steps for pt to navigate. pt has cane, walker and w/c but mainly uses walker. pt has home o2 at 2.5l via [employer]. pt drives a vehicle, and is independent with adls. pt is not current w/hh, but may benefit from hh srvcs. cm to cont to monitor.
--- NOTE | 2021-10-01 11:19 | EKG ---
[place] [address] ELECTROCARDIOGRAM REPORT Name: ED SEAY Room: [place] [address] ADM IN ..#: [id number] Admission: 09/30/21 Attend Phys: Jeferson Robles Discharge: Date of : 54 Date of Service: 09/30/212009 Report #: [id number] THIS REPORT FOR: //name// [facility] ED Test Date: 2021-09-30 Test Time: 20:10:40 Pat Name: ED SEAY Department: Room: [facility] Gender: M Food Adviser: ELIZABETH : 1950 Requested By: Jess Scott Order Number: [id number] MD: Rober Christine Measurements Intervals [place] Rate: 100 P: HI: QRS: 10 QRSD: 102 T: 172 QT: 401 QTc: 518 Interpretive Statements Atrial fibrillation Low voltage, extremity leads Borderline repolarization abnormality Prolonged QT interval Compared to ECG 02/02/2021 18:15:56 T-wave abnormality no longer present Electronically Signed On 10-01-2021 11:19:07 DIRECTOR CHEMISTRY by Rober Christine [email or web address] <ELECTRONICALLY SIGNED> By: Rober Christine MD, [facility] 10/01/21 1119 09 09 Rober Christine MD, [facility] /EPI
--- NOTE | 2021-10-01 14:16 | 2DMMODE ---
[place] [address] 2 D/M-MODE ECHOCARDIOGRAM Name: ED SEAY Room: [facility]15 ADM IN Jaja#: [id number] Admission: 09/30/21 Attend Phys: Jeferson Robles Discharge: Date of : 54 Date of Service: 10/01/21 1415 Report #: [id number] THIS REPORT FOR: cc: Trung Rashid MD, Bruce D. MD Blick,Rober Jacobo MD [facility] ~ ADDENDUM APPROVED REPORT Study performed: 10/01/2021 10:47:18 EXAM: Comprehensive 2D, Doppler, and color-flow Echocardiogram Patient Location: In-Patient Room #: er Status: routine BSA: 2.21 HR: 97 bpm BP: 120/77 mmHg Rhythm: Atrial Fibrillation Other Information Study Quality: Good Indications Congestive Heart Failure Atrial Fibrillation 2D Dimensions IVSd: 11.47 (7-11mm) LVOT Diam: 20.29 (18-24mm) LVDd: 60.34 mm PWd: 11.05 (7-11mm) Ascending Ao: 35.17 (22-36mm) LVDs: 55.88 (25-40mm) Aortic Root: 35.97 mm Volumes Left Atrial Volume (Systole) LA ESV Index: 42.10 mL/m2 Aortic Valve AoV Peak Arash.: 0.73 m/s AO Peak Gr.: 2.12 mmHg LVOT Max P.84 mmHg AO Mean Gr.: 1.43 mmHg LVOT Mean P.43 mmHg LVOT Max V: 0.46 m/s AO V2 VTI: 10.19 cm LVOT Mean V: 0.31 m/s WILY (VTI): 2.06 cm2 LVOT V1 VTI: 6.48 [place] [address] 2 D/M-MODE ECHOCARDIOGRAM Name: GEENA,JOHN Room: [address] IN ..#: [id number] Admission: 09/30/21 Attend Phys: Jeferson Robles Discharge: Date of : 54 Date of Service: 10/01/21 1415 Report #: [id number] TDI Medial E' Arash.: 0.06 m/s Lateral E' Arash.: 0.09 m/s Pulmonary Valve PV Peak Arash.: 0.51 m/s PV Peak Gr.: 1.05 mmHg Tricuspid Valve RAP Estimate: 10.00 mmHg TR Peak Gr.: 33.19 mmHg RVSP: 43.00 mmHg PA Pressure: 43.00 mmHg Left Ventricle Left ventricle is mildly dilated. There is severe global hypokinesis of the left ventricle. Mild concentric left ventricular hypertrophy. Left ventricular systolic function is severely decreased. LVEF is 20-25%. This study is not technically sufficient to allow evaluation of the LV diastolic function due to atrial fibrillation. Right Ventricle Right ventricle is dilated. Right ventricle is mildly hypokinetic. Pacemaker lead is present in the right ventricle. Atria Left atrium is mild to moderately dilated. Right atrium is dilated. Aortic Valve Aortic valve is calcified. Trace aortic regurgitation. There is no aortic valvular stenosis. Mitral Valve The mitral valve is normal in structure. Moderate mitral regurgitation. No evidence of mitral valve stenosis. Tricuspid Valve The tricuspid valve is normal in structure. Moderate tricuspid regurgitation. estimated pa pressure 45 mm Hg Pulmonic Valve The pulmonary valve is normal in structure. There is no pulmonic valvular regurgitation. Great Vessels The aortic root is normal in size[place] [address] 2 D/M-MODE ECHOCARDIOGRAM Name: ED SEAY Room: [address] IN [facility]#: [id number] Admission: 09/30/21 Attend Phys: Jeferson Robles Discharge: Date of : 54 Date of Service: 10/01/21 1415 Report #: [id number] Pericardium There is no pericardial effusion. Left pleural effusion. <Conclusion> Left ventricle is mildly dilated. LVEF is 20-25%. Right ventricle is dilated. Left atrium is mild to moderately dilated. Moderate mitral regurgitation. Moderate tricuspid regurgitation. estimated pa pressure 45 mm Hg <ELECTRONICALLY SIGNED> By: Rober Christine MD, FACC 10/01/211414 14 14 Rober Christine MD, FACC /INF
--- NOTE | 2021-10-01 14:41 | NUR ---
PT SETTLED INTO ROOM ON FLOOR. JAIRO WOUND RN CALLED BY ELECTRIC BLASTING CAP ASSEMBLER TO EVALUATE WOUNDS. DRESSINGS REMOVED THEY HAD URINE ON THEM. PT HAS SEVERAL OPEN WOUNDS ON LEGS, BLACK AREAS ON FOOT WOUNDS. GROIN RED RASH, HOWEVER NO OPEN AREAS APPRECIATED ON GROIN AREA.
--- NOTE | 2021-10-01 16:27 | NUR ---
WOUND NURSE: PATIENT LAST SEEN IN WOUND CENTER 2018. PATIENT HAS MULTIPLE WOUNDS BOTH LEGS AND FEET. RASH PRESENT GROIN AND LEFT HIP VERY EDEMATOUS IN GROIN AREA. PATIENT HAD POSITIVE PEDAL PULSES AND HAS HISTORY OF USING COMPRESSION AT HOME. MAY CONSIDER FURTHER VASCULAR ASSESSMENT. RIGHT GREAT 4CM X 2 CM X 0.1CM DRY ESCHAR, RIGHT LEG 20CM X 13CM X 0.2CM MULTIPLE OPEN AREAS, 50% EPITHELIAL, 25% SLOUGH AND 25% GRANULATION WITH MODERATE SEROUS DRAINAGE, LEFT GREAT TOE 2.5CM x 2.0CM X 0.1 DRY ESCHAR NO DRAINAGE, MULTIPLE DRY SCABS ON TOES LEFT FOOT. LEFT LEG 15CM X 15CM X 0.1CM WITH 50% EPITHELIAL, 25% SLOUGH AND 25% GRANUALTION TISSUE WITH MODERATE SEROUS DRAINAGE, LEFT KNEE 2.0CM X 2.5CM X 0.1CM. ALL WOUNDS WASHED WITH SOAP AND WATER. PATTED DRY. APPLIED AQUACEL AG, COVERED WITH ABD PADS AND WRAPPED WITH KERLIX AND MIRELLA WRAPS. INSTRUCTED ON LEG ELEVATION AND FREQUENT POSITION CHANGES TO PREVENT ANY PRESSURE INJURY. NURSE NOTIFIED OF CARE
--- NOTE | 2021-10-01 16:54 | NUR ---
PT HAD ASYMPTOMATIC EPISODE OF WIDE COMPLEX TACHYCARDIA. DR TSE NOTIFIED. CONTINUOUS TELE IN PLACE.
[2021-10-01 18:34] LABS: CALCIUM 8.1 mg/dL (8.5-10.1); CREATININE 1.3 mg/dL (0.6-1.3); POTASSIUM 4.3 mmol/L (3.5-5.1)
[2021-10-02 01:51] VITALS: BP 117/82
[2021-10-02 04:12] LABS: HEMATOCRIT 46.8 % (42.0-52.0); HEMOGLOBIN 14.9 gm/dL (14.0-18.0); MCH 26.9 pg (26.0-34.0); MCHC 31.9 g/dL (28.0-37.0); MCV 84.2 fL (80.0-100.0); MPV 8.3 fl. (7.2-11.1); RBC 5.55 mil/uL (4.50-6.00); RDW-CV 17.6 % (10.5-14.5); WBC 8.2 thou/uL (4.0-11.0)
[2021-10-02 04:43] LABS: CALCIUM 7.7 mg/dL (8.5-10.1); CREATININE 1.4 mg/dL (0.6-1.3); MAGNESIUM 1.6 mg/dL (1.8-2.4); POTASSIUM 3.9 mmol/L (3.5-5.1); TOTAL BILIRUBIN 0.7 mg/dL (<0.1-1.0); TOTAL PROTEIN 6.8 g/dL (6.4-8.2)
[2021-10-02 05:57] VITALS: BP 134/96
[2021-10-02 08:00] VITALS: BP 132/95
--- NOTE | 2021-10-02 08:20 | NUR ---
PT IS ABLE TO COMMUNICATE HIS NEEDS TO STAFF WITH MINOR DIFFICULTY; HE IS [id number]. HE HAS DENIED THE NEED FOR PAIN MEDICATION UP TO 0700 THIS MORNING. [place] POWDER TO PANUS AND GROIN LAST NIGHT; VERY RED AND DENUDED. DRESSING TO BLE RE-ENFORCED NEEDED; WOUND CARE FOLLOWING.
--- NOTE | 2021-10-02 11:16 | NUR ---
VANC TROUGH CRITICAL READ BACK TO THIS RN, LEVEL OF 26. PHARMACIST BRIAN CALLED BY THIS RN. STATED HOLD 1100 DOSE, WILL REDRAW TROUGH PER ORDERS.
[2021-10-02 11:20] VITALS: BP 127/88
--- NOTE | 2021-10-02 16:44 | NUR ---
NO ACUTE EVENTS THIS SHIFT. THIS RN ATTEMPTED TO COORDINATE CT SCAN WITH RN PALLIATIVE THIS SHIFT, HOWEVER RN PALLIATIVE HAD SEVERAL STAT SCANS AND PTS IS ROUTINE THEREFORE DELAYED PTS SCAN. PLAN CONTINUED DIURESIS, WOUND CARE, POSSIBLE REHAB ON D/C
[2021-10-02 20:39] VITALS: BP 110/67
[2021-10-02 23:50] VITALS: BP 114/72
[2021-10-03 04:48] LABS: HEMATOCRIT 45.5 % (42.0-52.0); HEMOGLOBIN 14.7 gm/dL (14.0-18.0); MCH 27.1 pg (26.0-34.0); MCHC 32.4 g/dL (28.0-37.0); MCV 83.7 fL (80.0-100.0); MPV 8.6 fl. (7.2-11.1); RBC 5.44 mil/uL (4.50-6.00); RDW-CV 17.1 % (10.5-14.5); WBC 8.2 thou/uL (4.0-11.0)
[2021-10-03 06:02] LABS: INR 1.9; PROTIME 19.2 Seconds (9.20-11.50)
[2021-10-03 06:06] LABS: ALBUMIN 1.9 g/dL (3.4-5.0); CALCIUM 8.1 mg/dL (8.5-10.1); CREATININE 1.2 mg/dL (0.6-1.3); MAGNESIUM 1.5 mg/dL (1.8-2.4); POTASSIUM 4.3 mmol/L (3.5-5.1); TOTAL BILIRUBIN 0.7 mg/dL (<0.1-1.0); TOTAL PROTEIN 6.6 g/dL (6.4-8.2)
[2021-10-03 06:42] VITALS: BP 126/93
--- NOTE | 2021-10-03 08:47 | NUR ---
PT IS ABLE TO COMMUNICATE HIS NEEDS TO STAFF WITH MINOR DIFFICULTY; HE IS [id number] AND IMPULSIVE. HE HAS DENIED THE NEED FOR PAIN MEDICAITON UP TO 0700 TODAY. RECEIVING LASIX; UP TO COMODE FREQUENTLY. CTA CHEST FOR PE PROTOCOL COMPLETED ON SECURITY SYSTEMS ADMINISTRATOR; RESULTS COMMUNICATE TO THIS AM.
[2021-10-03 08:50] VITALS: BP 127/93
[2021-10-03 12:00] VITALS: BP 157/95
[2021-10-03 16:00] VITALS: BP 130/88
[2021-10-03 19:44] VITALS: BP 125/90
[2021-10-04] VITALS (7 sets, daily range): BP systolic 109–146; BP diastolic 76–93
[2021-10-04 04:31] LABS: HEMATOCRIT 45.1 % (42.0-52.0); HEMOGLOBIN 14.3 gm/dL (14.0-18.0); MCH 26.7 pg (26.0-34.0); MCHC 31.7 g/dL (28.0-37.0); MCV 84.1 fL (80.0-100.0); MPV 8.3 fl. (7.2-11.1); RBC 5.36 mil/uL (4.50-6.00); RDW-CV 17.3 % (10.5-14.5); WBC 9.2 thou/uL (4.0-11.0)
[2021-10-04 04:55] LABS: CALCIUM 8.3 mg/dL (8.5-10.1); CREATININE 1.7 mg/dL (0.6-1.3); MAGNESIUM 1.5 mg/dL (1.8-2.4); TOTAL BILIRUBIN 0.8 mg/dL (<0.1-1.0); TOTAL PROTEIN 6.8 g/dL (6.4-8.2)
--- NOTE | 2021-10-04 09:35 | NUR ---
PT IS ABLE TO COMMUNICATE HIS NEEDS TO STAFF WITH MINOR DIFFICULTY; HE IS [id number] AND IMPULSIVE. HE HAS DENIED THE NEED FOR PAIN MEDICATION UP TO 0700 THIS MORNING. BILATERAL FOOT WOUND RE-WRAPPED THIS MORNING. WOUND CARE RNs FOLLOWING.
--- NOTE | 2021-10-04 13:58 | NUR ---
Nutrition: Pt admitted with diabetic wounds. RD unable to visit with pt on two attempts today, pt busy with staff. BG 124-186, alb 2, prealb 11.3 - severely low. Cellulitis on BLE. CHO controlled diet is ordered. Wts in Postify are variable: 225-254#. Please reweigh for accurate wt. RD ordered Wesley for wound healing. GOALS: Wesley bid, tight BG control. Consider mild nutrition risk.
--- NOTE | 2021-10-04 15:14 | NUR ---
PLAN OF CARE: PHYSICIAN INFORMS THAT THE PT IS NOT MEDICALLY STABLE AT THIS TIME. PT CURRENTLT ON IV ABT'S AND MAY NEED IV ABT'S AT D/C. CM TO CHECK PT'S INSURANCE BENEFITS FOR IV ABT'S. PHYSICIAN INFORMS THAT PT MAY ALSO NEED SNF. PT WILL NEED PT/OT EVALS TO ASSIST WITH THIS. CM WILL REMAIN AVAILABLE TO ASSIST AND FOLLOW NEEDED.
[2021-10-05] VITALS: BP 120/79
[2021-10-05 04:00] VITALS: BP 138/88
[2021-10-05 04:29] LABS: HEMOGLOBIN 13.7 gm/dL (14.0-18.0); MCH 26.8 pg (26.0-34.0); MCHC 31.8 g/dL (28.0-37.0); MCV 84.2 fL (80.0-100.0); MPV 8.2 fl. (7.2-11.1); RBC 5.11 mil/uL (4.50-6.00); RDW-CV 17.4 % (10.5-14.5); WBC 9.1 thou/uL (4.0-11.0)
[2021-10-05 05:01] LABS: CALCIUM 8.4 mg/dL (8.5-10.1); CREATININE 1.9 mg/dL (0.6-1.3); MAGNESIUM 1.6 mg/dL (1.8-2.4); POTASSIUM 4.6 mmol/L (3.5-5.1); TOTAL BILIRUBIN 0.8 mg/dL (<0.1-1.0); TOTAL PROTEIN 6.8 g/dL (6.4-8.2)
--- NOTE | 2021-10-05 08:07 | NUR ---
PT IS ABLE TO COMMUNICATE HIS NEEDS TO STAFF WITH ONLY MINOR DIFFICULTY; HE IS [id number]. HE HAS DENIED THE NEED FOR PAIN MEDICATION UP TO 0700 THIS MORNING. SURGICAL DENTAL ASSISTANT FOLLOWING.
[2021-10-05 08:17] VITALS: BP 124/90
--- NOTE | 2021-10-05 08:39 | CON ---
[address] [address] CONSULTATION Name: ED SEAY Room: [address] ADM IN M.R.#: [id number] Admission: 09/30/21 Attend Phys: Jorge Iniguez Discharge: Date of : 54 Report #: [id number] THIS REPORT FOR: cc: Trung Rashid MD, Bruce D. MD Liston, Michael J. MD FAC ~ cc: Trung Rashid MD, Rober Christine MD [facility] DATE OF CONSULTATION: 10/02/2021 CARDIOLOGY CONSULT INDICATION: Acute on chronic exacerbation of systolic heart failure. HISTORY OF PRESENT ILLNESS: The patient is a very pleasant 71-year-old gentleman who is well known to our service. He has a history of nonischemic cardiomyopathy and chronic atrial fibrillation. He is status post ICD placement for primary prevention. The patient was admitted to the hospital with possible cellulitis and sepsis and found to have significant lower extremity edema consistent with acute exacerbation of chronic systolic heart failure. He is diuresing adequately. He is not having any chest pain. He is without other specific cardiac complaint at this time. On telemetry, he is noted to have frequent PVCs and a single episode of nonsustained ventricular tachycardia lasting 6 beats. This is consistent with prior tracing from his ICD and appears stable. PAST MEDICAL HISTORY: 1. Nonischemic cardiomyopathy with EF of 20-25% by echocardiogram. 2. Chronic atrial fibrillation. 3. ICD in place for primary prevention. 4. Type 2 diabetes mellitus. 5. Obstructive sleep apnea. 6. Mixed hyperlipidemia. 7. Nonsustained ventricular tachycardia. 8. Cellulitis. FAMILY HISTORY: Noncontributory. SOCIAL HISTORY: The patient is a lifelong nonsmoker. He does not drink alcohol. ALLERGIES: ANASTROZOLE, BACTRIM, DUST MITE, METHYLPHENIDATE, MOLD, OMEPRAZOLE, PIOGLITAZONE, TAMOXIFEN ADHESIVE TAPE. HOME MEDICATIONS: Tessalon Perles 100 mg t.i.d. p.r.n., carvedilol 6.25 [place] [address] CONSULTATION Name: ED SEAY Room: [address]#: [id number] Admission: 09/30/21 Attend Phys: Jorge Iniguez Discharge: Date of : 54 Report #: [id number] b.i.d., digoxin 250 mcg daily, Cymbalta 60 mg daily, iron sulfate 325 mg b.i.d., Flonase nasal spray each nostril daily, Lasix 40 mg p.o. daily, gabapentin 800 mg 3 times daily, insulin 20 units t.i.d. with meals, Lantus 30 units at night, Jardiance 10 mg daily, Prevacid 15 mg daily, Xalatan eye drops one drop both eyes in the evening, albuterol inhaler p.r.n., Synthroid 125 mcg daily, Lidoderm patch to skin topically daily, Cytomel 5 mcg daily, magnesium 500 mg daily, omega 3 fish oil daily, melatonin 5 mg nightly p.r.n., metolazone 2.5 mg every other day as needed, multivitamin one tablet daily, Pravachol 80 mg nightly, Xarelto 20 mg daily, vitamin D 5000 units two times daily. REVIEW OF SYSTEMS: Positive for leg swelling, shortness of breath, orthopnea and joint pain, otherwise unremarkable. PHYSICAL EXAMINATION: VITAL SIGNS: Blood pressure 127/88, pulse 60. GENERAL: This is a pleasant gentleman in no distress. Mood and affect appropriate. HEENT: Extraocular muscles intact. Mucous membranes are moist. NECK: Shows no jugular venous distention. CHEST: Reveals diminished breath sounds, left greater than right. CARDIAC: Reveals an irregularly irregular rhythm without gallop or murmur. ABDOMEN: Reveals a protuberant abdomen is soft and nontender. EXTREMITIES: Shows 3-4+ edema to the thighs bilaterally. SKIN: Dry. Both lower extremities are rash. LABORATORY DATA: Reviewed. CBC essentially within normal limits. Electrolytes stable, BUN 29, creatinine 1.4. Chest x-ray on admission shows slight vascular congestion and cardiomegaly. IMPRESSION AND RECOMMENDATIONS: 1. Acute on chronic systolic heart failure. Continue IV diuretics and follow I's and O's daily. We will check labs in a.m. I believe the patient to be significantly volume overloaded at this time. He is hemodynamically stable. 2. Nonischemic cardiomyopathy. Continue home regimen. 3. Chronic atrial fibrillation. The patient's rate is adequately controlled. He is chronically anticoagulated and having no bleeding problems. 4. Nonsustained ventricular tachycardia. Asymptomatic. Electrolytes stable. No specific treatment at this time. [address] [address] CONSULTATION Name: ED SEAY Room: M.229-P ADM IN M.R.#: [id number] Admission: 09/30/21 Attend Phys: Jorge Iniguez Discharge: Date of : 54 Report #: [id number] 5. Diabetes per hospitalist. 6. ICD in place for primary prevention. <ELECTRONICALLY SIGNED> By: Vipin Sullivan MD, FACC 10/05/21 0839 1246 1722Mictomasz Sullivan MD, FACC /nt
[2021-10-05 12:26] VITALS: BP 120/84
--- NOTE | 2021-10-05 12:55 | NUR ---
PLAN OF CARE: PHYSICIAN INFORMS THAT PT MAY NEED SNF AT D/C. HOWEVER UNLESS PT CONTINUES TO NEED IV ABT'S IT IS UNLIKELY THAT THE PT WILL QUALIFY FOR SNF D/T WALKING 200FT WITH P.T. CM REQUEST PT/OT F/U WITH THE PT TO ASSIST WITH D/C PLANNING. CM WILL REMAIN AVAILABLE TO ASSIST AND FOLLOW NEEDED.
--- NOTE | 2021-10-05 14:22 | NUR ---
ASSUMED PT CARE AT 0730. PT IS A&OX4, CONVERSATIONAL AND COOPERATIVE. ASSESSMENT COMPLETED, PT WITH MULTIPLE WOUNDS NOTED IN CHART, SCABS ON BILAT KNEES AND MANY BRUISES. MEDICATIONS ADMINISTERED ORDERED. VANCOMYCIN HELS TROUGH WAS 26. PT UP WITH STAND BY ASSIST. SAFETY MEASURES IN PLACE.PT DENIES ANY CONCERNS AT THIS TIME.
[2021-10-05 16:52] VITALS: BP 125/78
[2021-10-05 20:00] VITALS: BP 106/70
[2021-10-06] VITALS: BP 117/77
[2021-10-06 04:00] VITALS: BP 114/88
[2021-10-06 04:19] LABS: HEMATOCRIT 39.7 % (42.0-52.0); HEMOGLOBIN 12.5 gm/dL (14.0-18.0); MCH 26.8 pg (26.0-34.0); MCHC 31.6 g/dL (28.0-37.0); MPV 8.4 fl. (7.2-11.1); RBC 4.67 mil/uL (4.50-6.00); RDW-CV 17.5 % (10.5-14.5); WBC 9.3 thou/uL (4.0-11.0)
[2021-10-06 04:45] LABS: CALCIUM 8.1 mg/dL (8.5-10.1); CREATININE 1.6 mg/dL (0.6-1.3); MAGNESIUM 1.7 mg/dL (1.8-2.4)
[2021-10-06 07:56] VITALS: BP 114/87
[2021-10-06 08:22] VITALS: BP 114/87
--- NOTE | 2021-10-06 09:12 | NUR ---
ASSUMED PT CARE AT APPROX 1930. PT IS AWAKE AND ORIENTED X4-FORGETFUL AT TIMES. PT IS NOT IN DISTRESS, NO DESATURATIONS NOTED ON ROOM AIR. PT IS TRACING AFIB ON THE SALES OPERATIONS MANAGER. NO ACUTE CHANGES OVER NIGHT. PAIN MEDS GIVEN FOR RIGHT HIP PAIN- WITH RELIEF. CALL LIGHT WITHIN REACH. HIGH FALL PRECAUTIONS IN PLACE. HOURLY ROUNDING DONE FOR PT SAFETY.
[2021-10-06 11:55] VITALS: BP 127/81
[2021-10-06 12:49] LABS: APTT 38.2 Seconds (25.0-31.3); INR 1.3; PROTIME 13.4 Seconds (9.20-11.50)
--- NOTE | 2021-10-06 15:50 | NUR ---
ASSUMED PT CARE AT 0730. PT IS A&OX3-4 AND FORGETFUL. PT REMINDED OF SAFETY MEASURES OFTEN, SAFETY MEASURES IN PLACE TO PROMOTE SAFETY. ASSESSMENT COMPLETED. PT UP TO BSC WITH ASSIST OF 1. MEDICATIONS ADMINISTERED ORDERED.
[2021-10-06 16:00] VITALS: BP 101/56
--- NOTE | 2021-10-06 18:04 | NUR ---
PT C/O PAIN AT APPROX 1615, NON PHARMACOLOGICAL INTERVENTIONS INEFFECTIVE. PT C/O PAIN AT A 9, PRN MORPHINE ADMINISTERED ORDERED AT APPROX 1630. AT APPROX 1645 STAFF ASSISTING PT TO BSC, PT BECAME VERY WEAK, PLACED BACK IN BED, PT DIFFICULT TO AROUSE. REGISTERED DIET TECHNICIAN CALLED, NARCAN ADMINISTERED, VS, ACCUCHECK. PT BEGAN TO RESPOND SHORTLY THEREAFTER. PT NOW RESPONDING APPROPRIATELY. PHYSICIAN NOTIFIED, NEW ORDERS RECIEVED AND IMPLEMENTED.
[2021-10-06 18:44] LABS: CALCIUM 7.9 mg/dL (8.5-10.1); CREATININE 1.8 mg/dL (0.6-1.3); POTASSIUM 5.5 mmol/L (3.5-5.1)
[2021-10-06 19:28] LABS: BE 5.7 mmol/L (-2 to +3); PCO2 35.2 mmHg (35.0-45.0); PO2 75.4 mmHg (75.0-100.0); pH 7.529 (7.340-7.450)
--- NOTE | 2021-10-06 20:00 | NUR ---
PT AO X4 VERY PALE AND WEAK, VITALS SOFT BUT STABLE. PT COMPLAINING OF RT HIP PAIN 9/10. PT REPORTS COUGH WITH SOME THICK YELLOW PHLEGM. LUNGS CTA/DIM WITH SOME AUDIBLE WHEEZES IN UPPER AIRWAY. PT HAS MULTIPLE SKIN ABRAISIONS AND SCABS ON UPPER AND LOWER LIMBS, LEGS ARE WRAPPED FROM WOUND CARE VISIT TODAY. ORDER WAS OBTAINED FROM [facility] RESPIRATORY THERAPIST FOR TRAMADOL AND TYLENOL FOR PAIN AND K PAD FOR HEAT THERAPY. THIS WAS PLACED TO RT HIP. CALL LIGHT IN REACH AND BED ALARM ON FOR PT SAFETY
[2021-10-07 00:38] VITALS: BP 64/35
--- NOTE | 2021-10-07 03:15 | NUR ---
APPROX 0115 PT TELEMONITOR HAD ALARMED AND CONTROL PANEL TESTER WENT TO BEDSIDE, PT WAS UNRESPONSIVE AND CODE BLUE WAS ACTIVATED. CPR GIVEN AND PT ADRIANA HAYS NOTIFIED OF CHANGE IN PT CONDITION. TIME OF CALLED AT 0150 AND CPR WAS STOPPED. ADRIANA HAYS NOTIFIED. [facility], PT BELONGINGS RELEASED TO HIM.
--- NOTE | 2021-10-08 13:31 | NUR ---
Received call from HS today that patient is being housed in our morgue. HS asked if CM could reach out to family to determine home arrangements/plans for pickup of body. Spoke to Rashard (son) who stated that he is currently in the process of locating a home. He stated that he was not able to arrange anything yesterday because he had to break the news of his father's to his family. Per Rashard, he will call LATOYA Elizondo back today with final plans. CM Dir offered emotional support and will help family if needed. CM Dir will update security and HS once plans are arranged. CM to continue to follow
--- NOTE | 2021-10-12 10:05 | NUR ---
CM left vm with son Navin for follow up on previous concerns noted. Risk advised that if summary was completed by the physician on a [employer] form then family will need to appeal charting through medical records. If summary was completed by the physician through the state (online portal) then the family will need to call the state number listed on the form or reach out to the local courthouse for more help. Per physician, what was documented at the time of was true and accurate to her knowledge. No other CM needs noted at this time
== END 2021-10-07 01:50 | DRG 602 ==
LOC: EDBD 18:36 → M.ERS 18:36 → M.TBA-ER 22:33 → M.2W 22:33
PROVIDERS: Internal Medicine; Personal Emergency Response Attendant; ADMIT Internal Medicine; ATTEND Internal Medicine
PROC: 5A12012 Performance of Cardiac Output, Single, Manual (ICD-10-PCS; principal; 2021-10-07)
DX: L03.116 Cellulitis of left lower limb (principal); N17.0 Acute kidney failure with tubular necrosis; I50.23 Acute on chronic systolic (congestive) heart failure; J69.0 Pneumonitis due to inhalation of food and vomit; I42.8 Other cardiomyopathies; I48.20 Chronic atrial fibrillation, unspecified; I47.2 Ventricular tachycardia; L03.115 Cellulitis of right lower limb; B35.6 Tinea cruris; E11.621 Type 2 diabetes mellitus with foot ulcer; Z20.822 Contact with and (suspected) exposure to COVID-19; G47.33 Obstructive sleep apnea (adult) (pediatric); E78.2 Mixed hyperlipidemia; I46.9 Cardiac arrest, cause unspecified; E66.01 Morbid (severe) obesity due to excess calories; Z68.36 Body mass index [BMI] 36.0-36.9, adult; Z79.01 Long term (current) use of anticoagulants; Z85.3 Personal history of malignant neoplasm of breast; Z90.49 Acquired absence of other specified parts of digestive tract; Z95.0 Presence of cardiac pacemaker; Z86.711 Personal history of pulmonary embolism; Z88.2 Allergy status to sulfonamides; Z88.8 Allergy status to other drugs, medicaments and biological substances